=== PATIENT | male | born 1970 | race American Indian/Alaskan Native ===

== ENCOUNTER 2016-08-23 08:48 | Emergency (ER) | payer OTHER ==
[2016-08-23 09:20] VITALS: BP 209/153
[2016-08-23 09:58] LABS: Basophils % (Auto) 0.3 % (0.0-1.8); Eosinophils % (Auto) 0.4 % (0.0-4.3); Hematocrit 38.9 % (35.5-45.6); Hemoglobin 12.2 gm/dl (11.8-15.2); Mean Corpuscular HGB Conc 31 % (32-34); Mean Corpuscular Hemoglobin 28 pg (28-32); Mean Corpuscular Volume 88 fl (84-94); Platelet Count 307 K/mm3 (140-440); Red Cell Distribution Width 17.1 % (13.2-15.2); White Blood Count 6.2 K/mm3 (4.5-11.0)
[2016-08-23 10:15] LABS: Creatine Kinase MB 3.9 ng/mL (0.0-4.0)
[2016-08-23 10:16] LABS: Calcium 8.8 mg/dL (8.4-10.2); Chloride 100.4 mmol/L (98-107); Potassium 4.8 mmol/L (3.6-5.0)
[2016-08-23 11:15] LABS: Bilirubin,Urine NEG (Negative); Blood,Urine SM (Negative); Ketones,Urine NEG (Negative); Leukocyte Esterase,Urine NEG (Negative); Nitrite,Urine NEG (Negative); Protein,Urine <15 mg/dL mg/dL (Negative); Urobilinogen,Urine < 2.0 mg/dL (<2.0); WBC,Urine < 1.0 /HPF (0.0-6.0)
--- NOTE | 2016-08-24 00:21 | ED Elopement Review ---
ED Pt Elopement review - Results review Lab results: Laboratory Tests 08/23/16 08/23/16 08/23/16 09:46 09:46 11:03 WBC 6.2 RBC 4.40 Hgb 12.2 Hct 38.9 MCV 88 MCH 28 MCHC 31 L RDW 17.1 H Plt Count 307 Lymph % (Auto) 8.2 L Wise % (Auto) 6.9 Eos % (Auto) 0.4 Baso % (Auto) 0.3 Lymph # 0.5 L Wise # 0.4 Eos # 0.0 Baso # 0.0 Seg Neutrophils % 84.2 H Seg Neutrophils # 5.2 Sodium 137 Potassium 4.8 Chloride 100.4 Carbon Dioxide 24 Anion Gap 17 BUN 24 H Creatinine 1.6 H Estimated GFR 56 BUN/Creatinine Ratio 15.00 Glucose 107 H Calcium 8.8 Total Creatine Kinase 167 CK-MB (CK-2) 3.9 CK-MB (CK-2) Rel Index 2.3 Troponin T 0.054 H Triglycerides 79 Cholesterol 166 LDL Cholesterol Direct 106 HDL Cholesterol 45 Cholesterol/HDL Ratio 3.68 Urine Color Colorless Urine Turbidity Clear Urine pH 5.0 Ur Specific [place] 1.005 Urine Protein <15 mg/dl Urine Glucose (UA) Neg Urine Ketones Neg Urine Blood Sm Urine Nitrite Neg Urine Bilirubin Neg Urine Urobilinogen < 2.0 Ur Leukocyte Esterase Neg Urine WBC (Auto) < 1.0 Urine RBC (Auto) 1.0 - Call Back decision Pt Call Back Decision: Call pt to return to ED TRISTA (Hypertension with elevated troponin)
== END 2016-08-23 09:46 | disposition left against medical advice (07) ==
LOC: ED 08:48
DX: R06.02 Shortness of breath (principal); Z53.21 Procedure and treatment not carried out due to patient leaving prior to being seen by health care provider
CPT/HCPCS: 36415; 80048; 80061; 81001; 82550; 82553; 84484; 85025; 93005; 93010

== ENCOUNTER 2019-01-21 12:33 | Inpatient (IN) | payer BC, OTHER ==
[2019-01-21] MEDS ORDERED: NACL 0.9% 1000 ML 1,000 ML ONE (13:02)
[2019-01-21] MEDS ORDERED: ZOFRAN ONE (13:02)
[2019-01-21] MEDS ORDERED: NACL 0.9% 1000 ML 2,000 ML IV ONE (13:04)
[2019-01-21] MEDS ORDERED: PROTONIX IV ONE (13:04)
[2019-01-21] MEDS ORDERED: ROCEPHIN/NS 1 GM/50 ML 1 GM/50 ML BAG IV ONE (13:05)
[2019-01-21] MEDS ORDERED: ZOFRAN IV ONE (13:27)
[2019-01-21 13:43] LABS: Hematocrit 26.2 % (35.5-45.6); Hemoglobin 8.8 gm/dl (11.8-15.2); Mean Corpuscular HGB Conc 34 % (32-34); Mean Corpuscular Volume 107 fl (84-94); Platelet Count 119 K/mm3 (140-440); Red Blood Count 2.45 M/mm3 (3.65-5.03)
[2019-01-21] MEDS: PROTONIX 80 MG in NACL 0.9% 100 ML IV SCH (13:43)
[2019-01-21 13:53] LABS: Red Cell Distribution Width 21.5 % (13.2-15.2)
[2019-01-21 13:57] LABS: Alanine Aminotransferase 54 units/L (7-56); Albumin 2.8 g/dL (3.9-5); BUN/Creatinine Ratio 20; Blood Urea Nitrogen 18 mg/dL (9-20); Hemolysis Index 0; INR 1.64 (0.87-1.13)
[2019-01-21 13:58] LABS: Partial Thromboplastin Time 38.4 Sec. (24.2-36.6)
[2019-01-21] MEDS ORDERED: LIDOCAINE VISCOUS 2% ONE (14:29)
[2019-01-21 14:53] LABS: Basophils % (Manual) 0 % (0.0-1.8); Eosinophils % (Manual) 0 % (0.0-4.3); Total Cells Counted 100
[2019-01-21 14:54] LABS: Anisocytosis 1+; Hypochromasia 2+; Large Platelets Rare; Ovalocytes Few; Platelet Estimate Consistent w Auto; Poikilocytosis 1+; Stomatocytes Few; Tear Drop Cells Few
[2019-01-21] MEDS ORDERED: FLAGYL 500 MG/100 ML 500 MG/100 ML BAG IV ONE (15:15)
--- NOTE | 2019-01-21 15:27 | XRay Report ---
Acute abdomen series 3 views 1423 INDICATION: Abdominal pain, nausea, vomiting Lung negrete are clear. Heart size and pulmonary vascularity appear within normal limits. No pneumotho rax or pneumoperitoneum are seen. Bowel gas pattern is unremarkable without evidence of obstruction. Calcifications in the right pelvis probably are vascular. There is possible minimal right nephrolithi asis though this may be artifact. Signer Name: Adolfo Carpio MD Signed: 01/21/2019 3:22 PM Workstation Name: [id number]
[2019-01-21 15:36] LABS: Hematocrit 24.4 % (35.5-45.6); Hemoglobin 8.2 gm/dl (11.8-15.2)
[2019-01-21] MEDS ORDERED: NACL 0.9% 500 ML 500 ML IV ONE (15:44)
--- NOTE | 2019-01-21 15:46 | History and Physical Report ---
History of Present Illness Chief complaint: Blood keeps coming out History of present illness: 48 YO Male with ETOH Dependence present to ED for evaluation. Pt states that he has experienced multiple episodes af hematemesis over the past 2 days with worsening symptoms over the past 8 hours. Pt states that he has vomited countless times since waking this morning. Pt states that his last drink of ETOH was 2 days ago. EMS notified and upon arrival the patient was found to be in distress, and transported to [facility]. Pt seen and evaluated in ED and found to have evidence of Upper GI Bleed, as well as suspected Esophageal Varices. GI consulted in ED. Pt admitted to ICU and initiated on Octreotide, Protonix, as well as transfused with FFP and PRBC. Pt denies fever, chills, CP, Palpitations, Trauma, BRBPR, Productive cough, leg swelling, calf pain, seizures, vertigo, skin rash, ingestion of food/water from new/different sources. No prior admission for review. All listed medication reconciled at time of admission. Past History Past Medical History: hypertension Past Surgical History: No surgical history, Other (reviewed) Social history: , lives with family, alcohol abuse Family history: no significant family history (reviewed) Medications and Allergies Allergies Allergy/AdvReac Type Severity Reaction Status Date / Time No Known Allergies Allergy Unverified 05/30/13 18:21 Home Medications Medication Instructions Recorded Confirmed Last Taken Type Metoprolol [Lopressor TAB] 50 mg PO BID #60 tablet 06/01/13 Unknown Rx Sulfamethoxazole/Trimethoprim 1 each PO Q12HR #20 tablet 06/01/13 Unknown Rx [Bactrim DS TAB] hydrALAZINE [Apresoline TAB] 50 mg PO Q8HR #90 tablet 06/01/13 Unknown Rx HYDROcodone/APAP 7.5-325 [[place] 1 each PO Q6HR PRN #30 tablet 01/20/14 Unknown Rx 7.5/325 mg] Ibuprofen [Motrin] 600 mg PO Q8H PRN #60 tablet 01/20/14 Unknown Rx Sulfamethoxazole/Trimethoprim 1 each PO BID #14 tablet 07/19/14 Unknown Rx [Bactrim Ds] amLODIPine [Norvasc] 5 mg PO QDAY #30 tablet 07/19/14 Unknown Rx traMADol [Ultram 50 MG tab] 50 mg PO Q6HR PRN #10 tablet 07/19/14 Unknown Rx Active Meds: Active Medications Pantoprazole Sodium 80 mg/ (Sodium Chloride) 100 mls @ 10 mls/hr IV DIRECT SCOTT Last Admin: 01/21/19 13:43 Dose: 8 mg/hr, 10 mls/hr Documented by: Octreotide Acetate 500 mcg/ (Sodium Chloride) 101 mls @ 5.05 mls/hr IV TITR ONE; Protocol Stop: 01/22/19 11:59 Sodium Chloride (Nacl 0.9% 500 Ml) 500 mls @ 0 mls/hr IV ONCE ONE Stop: 01/21/19 15:45 Octreotide Acetate (Sandostatin) 50 mcg IV ONCE ONE Stop: 01/21/19 16:01 Review of Systems Constitutional: no weight loss, no weight gain, no fever, no chills Ears, nose, mouth and throat: no ear pain, no ear discharge, no tinnitis, no decreased hearing, no nose pain Cardiovascular: no chest pain, no orthopnea, no palpitations, no rapid/irregular heart beat, no edema, no syncope Respiratory: hemoptysis, no cough, no cough with sputum Gastrointestinal: vomiting, hematemesis, coffee ground emesis, no diarrhea, no BRBPR, no melena Genitourinary Male: no hematuria, no flank pain, no discharge, no urinary frequency Rectal: no pain, no incontinence, no bleeding Musculoskeletal: no neck stiffness, no arm numbness/tingling, no shooting leg pain Integumentary: no rash, no pruritis, no redness, no sores, no wounds, no jaundice Neurological: no head injury, no transient paralysis, no paralysis, no parathesias, no numbness, no tingling, no seizures, no syncope Psychiatric: no anxiety, no insomnia, no hypersomnia, no change in libido, no suicidal ideation Endocrine: no cold intolerance, no heat intolerance, no polydipsia, no nocturia, no flushing Hematologic/Lymphatic: no easy bruising, no easy bleeding Allergic/Immunologic: no urticaria Exam - Constitutional Vitals: Temp Pulse Resp BP Pulse Ox 98.5 F 124 H 31 H 140/59 100 01/21/19 12:48 01/21/19 15:31 01/21/19 15:31 01/21/19 15:31 01/21/19 15:31 General appearance: Present: mild distress - EENT Eyes: Present: PERRL ENT: hearing intact, clear oral mucosa - Neck Neck: Present: supple, normal ROM - Respiratory Respiratory effort: normal Respiratory: bilateral: CTA - Cardiovascular Heart Sounds: Present: S1 & S2. Absent: rub, click - Extremities Extremities: pulses symmetrical, No edema Peripheral Pulses: within normal limits - Abdominal General gastrointestinal: Present: soft, non-tender, non-distended, normal bowel sounds Male genitourinary: Present: normal - Integumentary Integumentary: Present: clear, warm, dry - Musculoskeletal Musculoskeletal: gait normal, strength equal bilaterally - Psychiatric Psychiatric: appropriate mood/affect, intact judgment & insight - Neurologic Neurologic: CNII-XII intact, moves all extremities Results - Labs CBC & Chem 7: 01/21/19 15:24 01/21/19 13:03 Labs: Abnormal lab results 01/21/19 01/21/19 01/21/19 Range/Units 13:03 13:03 13:03 RBC 2.45 L (3.65-5.03) M/mm3 Hgb 8.8 L (11.8-15.2) gm/dl Hct 26.2 L (35.5-45.6) % MCV 107 H (84-94) fl MCH 36 H (28-32) pg RDW 21.5 H (13.2-15.2) % Plt Count 119 L (140-440) K/mm3 Seg Neuts % (Manual) 76.0 H (40.0-70.0) % PT 19.0 H (12.2-14.9) Sec. INR 1.64 H (0.87-1.13) APTT 38.4 H (24.2-36.6) Sec. Carbon Dioxide 17 L (22-30) mmol/L Glucose 139 H (75-100) mg/dL Lactic Acid (0.7-2.0) mmol/L Calcium 8.0 L (8.4-10.2) mg/dL Total Bilirubin 2.70 H (0.1-1.2) mg/dL AST 156 H (5-40) units/L Albumin 2.8 L (3.9-5) g/dL 01/21/19 01/21/19 Range/Units 14:09 15:24 RBC (3.65-5.03) M/mm3 Hgb 8.2 L (11.8-15.2) gm/dl Hct 24.4 L (35.5-45.6) % MCV (84-94) fl MCH (28-32) pg RDW (13.2-15.2) % Plt Count (140-440) K/mm3 Seg Neuts % (Manual) (40.0-70.0) % PT (12.2-14.9) Sec. INR (0.87-1.13) APTT (24.2-36.6) Sec. Carbon Dioxide (22-30) mmol/L Glucose (75-100) mg/dL Lactic Acid 7.30 H* (0.7-2.0) mmol/L Calcium (8.4-10.2) mg/dL Total Bilirubin (0.1-1.2) mg/dL AST (5-40) units/L Albumin (3.9-5) g/dL Assessment and Plan - Patient Problems (1) GI bleed Current Visit: Yes Status: Acute Qualifiers: GI bleed type/associated pathology: unspecified gastrointestinal hemorrhage type Qualified Code(s): K92.2 - Gastrointestinal hemorrhage, unspecified Plan to address problem: Admit to ICU, IV protonix, IV octreotide, PRBC transfusion, FFP Transfusion, bowel rest, GI consulted in ED, Pending endoscopy for suspected esophageal varices. The high probability of a clinically significant, sudden or life threatening deterioration of the [Gi, Hematologic,respiratory] system(s) required my full and direct attention, intervention and personal management. The aggregate critical care time was [65] minutes. This time is in addition to time spent performing reported procedures but includes the following: [x] Data Review and interpretation [x] Patient assessment and monitoring of vital signs [x] Documentation [x] Medication orders and management (2) EtOH dependence Current Visit: Yes Status: Acute Qualifiers: Substance use status: with intoxication Plan to address problem: CIWA protocol, banana bag now and in AM. Pt is NPO for now due to upper GI Bleeding (3) Anemia Current Visit: Yes Status: Acute Plan to address problem: PRBC transfusion, iron replacement therapy when able to tolerate oral diet. (4) Acidosis Current Visit: Yes Status: Acute (5) Hepatic failure due to alcoholism Current Visit: Yes Status: Acute Plan to address problem: ETOH cessation, LFT's, supportive care. avoid hepatotoxic agents. (6) DVT prophylaxis Current Visit: Yes Status: Acute Plan to address problem: SCD to BLE while in bed, Hold anticoagulation due to GI bleeding
--- NOTE | 2019-01-21 15:46 | XRay Report ---
Abdomen single view INDICATION: Abdominal pain IMPRESSION: Nonobstructive bowel gas pattern. The esophagogastric tube terminates within the stomach. Signer Name: Jose Hutson MD Signed: 01/21/2019 3:42 PM Workstation Name: [id number]
--- NOTE | 2019-01-21 15:50 | Emergency Department Report ---
ED GI Bleed HPI - General Chief complaint: GI Bleed Stated complaint: N/V Time Seen by Provider: 01/21/19 13:02 Source: EMS Mode of arrival: Stretcher Limitations: No Limitations - History of Present Illness Initial comments: Reports history of alcoholism. MD complaint: gross hematemesis -: hour(s) Radiation: none Severity scale (0 -10): 0 Quality: painless Consistency: intermittent Improves with: none Worsens with: none Context: alcohol abuse Associated Symptoms: nausea, vomiting. denies: abdominal pain, epistaxis, fever/chills, headaches, loss of appetite, malaise, easy bruising, rash, shortness of breath, syncope, weakness - Related Data Previous Rx's Medication Instructions Recorded Last Taken Type Metoprolol [Lopressor TAB] 50 mg PO BID #60 tablet 06/01/13 Unknown Rx Sulfamethoxazole/Trimethoprim 1 each PO Q12HR #20 tablet 06/01/13 Unknown Rx [Bactrim DS TAB] hydrALAZINE [Apresoline TAB] 50 mg PO Q8HR #90 tablet 06/01/13 Unknown Rx HYDROcodone/APAP 7.5-325 [[place] 1 each PO Q6HR PRN #30 tablet 01/20/14 Unknown Rx 7.5/325 mg] Ibuprofen [Motrin] 600 mg PO Q8H PRN #60 tablet 01/20/14 Unknown Rx Sulfamethoxazole/Trimethoprim 1 each PO BID #14 tablet 07/19/14 Unknown Rx [Bactrim Ds] amLODIPine [Norvasc] 5 mg PO QDAY #30 tablet 07/19/14 Unknown Rx traMADol [Ultram 50 MG tab] 50 mg PO Q6HR PRN #10 tablet 07/19/14 Unknown Rx Allergies Allergy/AdvReac Type Severity Reaction Status Date / Time No Known Allergies Allergy Unverified 05/30/13 18:21 ED Review of Systems ROS: Stated complaint: N/V Other details as noted in HPI Other: GENERAL: No weight change, fatigue, weakness, fever, chills, or night sweats SKIN: No changes in skin or hair, no itching, no rashes, no jaundice HEAD: No trauma, headache, or visual changes EYES: No blurriness, tearing, itching, acute visual loss, conjunctival discoloration, or scleral icterus EARS: No hearing loss, tinnitus, vertigo, or earache NOSE: No rhinorrhea, stuffiness, sneezing, itching, or epistaxis MOUTH: No bleeding gums, hoarseness, sore throat, or swelling CARDIAC: No new murmur, chest pain, palpitations, dyspnea on exertion, orthopnea , PND, or edema RESPIRATORY: No shortness of breath, wheeze, cough, sputum production, hemoptysis, pneumonia, asthma, bronchitis, or emphysema GI: Hematemesis, n/v. MUSCULOSKELETAL: No muscle weakness, joint stiffness, decrease in range of motion, redness, swelling NEUROLOGIC: No loss of sensation, numbness, tingling, tremors, weakness, paralysis, seizures HEMATOLOGIC: No anemia, easy bruising, bleeding, petechiae, or purpura ENDOCRINE: No hot or cold intolerance, sweating, polyuria, polydipsia or, polyphagia no thyroid problems PSYCHIATRIC: No change in mood, no anxiety, no depression ED Past Medical Hx - Past Medical History Previous Medical History?: Yes Hx Hypertension: Yes Hx Congestive Heart Failure: No Hx Diabetes: No - Social History Smoking Status: Never Smoker - Medications Home Medications: Home Medications Medication Instructions Recorded Confirmed Last Taken Type Metoprolol [Lopressor TAB] 50 mg PO BID #60 tablet 06/01/13 Unknown Rx Sulfamethoxazole/Trimethoprim 1 each PO Q12HR #20 tablet 06/01/13 Unknown Rx [Bactrim DS TAB] hydrALAZINE [Apresoline TAB] 50 mg PO Q8HR #90 tablet 06/01/13 Unknown Rx HYDROcodone/APAP 7.5-325 [[place] 1 each PO Q6HR PRN #30 tablet 01/20/14 Unknown Rx 7.5/325 mg] Ibuprofen [Motrin] 600 mg PO Q8H PRN #60 tablet 01/20/14 Unknown Rx Sulfamethoxazole/Trimethoprim 1 each PO BID #14 tablet 07/19/14 Unknown Rx [Bactrim Ds] amLODIPine [Norvasc] 5 mg PO QDAY #30 tablet 07/19/14 Unknown Rx traMADol [Ultram 50 MG tab] 50 mg PO Q6HR PRN #10 tablet 07/19/14 Unknown Rx ED Physical Exam - General Limitations: No Limitations - Other Other exam information: GENERAL: Patient in moderate acute distress HEAD: Normocephalic, atraumatic MOUTH: Dark red blood around lips. No erythema, bleeding, exudate HEART: Tachycardia, no murmur, S1-S2 are auscultated, pulses are symmetric LUNGS: No wheezing, rales, rhonchi, bilateral breath sounds ABDOMEN: Active hematemesis in the ER. Approximately 500 cc dark red blood. Normal bowel sounds, no tenderness, no rebound, no guarding, no masses, no CVA tenderness MUSCULOSKELETAL: Normal joint range of motion, no redness, no swelling, no tenderness NEUROLOGIC: GCS 15, Alert and Oriented x3, Cranial nerves intact, normal sensation, normal strength, normal gait, no cerebellar deficit SKIN: Skin is warm and dry, no wounds, no rashes ED Course Vital Signs 01/21/19 01/21/19 01/21/19 12:38 12:46 12:48 Temperature 98.5 F Pulse Rate 121 H 87 Respiratory 17 17 Rate Blood Pressure 105/54 105/54 108/65 Blood Pressure [Right] O2 Sat by Pulse 99 100 Oximetry 01/21/19 01/21/19 01/21/19 13:00 13:15 13:20 Temperature Pulse Rate 128 H 121 H 114 H Respiratory 17 25 H 30 H Rate Blood Pressure 89/51 Blood Pressure 90/62 [Right] O2 Sat by Pulse 97 99 98 Oximetry 01/21/19 01/21/19 01/21/19 13:24 13:30 13:45 Temperature Pulse Rate 117 H Respiratory 17 Rate Blood Pressure 112/63 115/62 Blood Pressure 112/75 [Right] O2 Sat by Pulse 100 98 98 Oximetry 01/21/19 01/21/19 01/21/19 14:01 14:15 14:30 Temperature Pulse Rate 125 H 126 H Respiratory 25 H 18 Rate Blood Pressure 140/87 131/75 Blood Pressure 135/75 [Right] O2 Sat by Pulse 97 99 100 Oximetry 01/21/19 01/21/19 01/21/19 14:31 14:45 15:01 Temperature Pulse Rate 124 H 129 H Respiratory 16 28 H Rate Blood Pressure 131/75 144/85 124/67 Blood Pressure [Right] O2 Sat by Pulse 98 99 98 Oximetry 01/21/19 01/21/19 01/21/19 15:15 15:23 15:31 Temperature Pulse Rate 124 H 125 H 124 H Respiratory 15 17 31 H Rate Blood Pressure 138/61 140/59 Blood Pressure 135/68 [Right] O2 Sat by Pulse 100 100 100 Oximetry ED Medical Decision Making - Lab Data Result diagrams: 01/21/19 15:24 01/21/19 13:03 Laboratory Results - last 24 hr 01/21/19 01/21/19 01/21/19 13:03 13:03 13:03 WBC 6.7 RBC 2.45 L Hgb 8.8 L Hct 26.2 L MCV 107 H MCH 36 H MCHC 34 RDW 21.5 H Plt Count 119 L Add Manual Diff Complete Total Counted 100 Seg Neuts % (Manual) 76.0 H Band Neutrophils % 0 Lymphocytes % (Manual) 18.0 Reactive Lymphs % (Man) 3.0 Monocytes % (Manual) 3.0 Eosinophils % (Manual) 0 Basophils % (Manual) 0 Metamyelocytes % 0 Myelocytes % 0 Promyelocytes % 0 Blast Cells % 0 Nucleated RBC % Not Reportable Seg Neutrophils # Man 5.1 Band Neutrophils # 0.0 Lymphocytes # (Manual) 1.2 Abs React Lymphs (Man) 0.2 Monocytes # (Manual) 0.2 Eosinophils # (Manual) 0.0 Basophils # (Manual) 0.0 Metamyelocytes # 0.0 Myelocytes # 0.0 Promyelocytes # 0.0 Blast Cells # 0.0 WBC Morphology Not Reportable Hypersegmented Neuts Not Reportable Hyposegmented Neuts Not Reportable Hypogranular Neuts Not Reportable Smudge Cells Not Reportable Toxic Granulation Not Reportable Toxic Vacuolation Not Reportable Dohle Bodies Not Reportable Pelger-Huet Anomaly Not Reportable Tara Rods Not Reportable Platelet Estimate Consistent w auto Clumped Platelets Not Reportable Plt Clumps, EDTA Not Reportable Large Platelets Rare Giant Platelets Not Reportable Platelet Satelliting Not Reportable Plt Morphology Comment Not Reportable RBC Morphology Not Reportable Dimorphic RBCs Not Reportable Polychromasia Not Reportable Hypochromasia 2+ Poikilocytosis 1+ Anisocytosis 1+ Microcytosis 1+ Macrocytosis Not Reportable Spherocytes Not Reportable Pappenheimer Bodies Not Reportable Sickle Cells Not Reportable Target Cells Not Reportable Tear Drop Cells Few Ovalocytes Few Stomatocytes Few Helmet Cells Not Reportable [place] Bodies Not Reportable [place] Rings Not Reportable [place] Cells Not Reportable Bite Cells Not Reportable Crenated Cell Not Reportable Elliptocytes Not Reportable Acanthocytes (Spur) Not Reportable Rouleaux Not Reportable Hemoglobin C Crystals Not Reportable Schistocytes Not Reportable Malaria parasites Not Reportable [place] Bodies Not Reportable Hem Pathologist Commnt No PT 19.0 H INR 1.64 H APTT 38.4 H Sodium 141 Potassium 4.5 Chloride 102.7 Carbon Dioxide 17 L Anion Gap 26 BUN 18 Creatinine 0.9 Estimated GFR > 60 BUN/Creatinine Ratio 20 Glucose 139 H Lactic Acid Calcium 8.0 L Total Bilirubin 2.70 H AST 156 H ALT 54 Alkaline Phosphatase 110 Troponin T < 0.010 Total Protein 6.7 Albumin 2.8 L Albumin/Globulin Ratio 0.7 Blood Type Antibody Screen 01/21/19 01/21/19 01/21/19 13:03 14:09 15:24 WBC RBC Hgb 8.2 L Hct 24.4 L MCV MCH MCHC RDW Plt Count Add Manual Diff Total Counted Seg Neuts % (Manual) Band Neutrophils % Lymphocytes % (Manual) Reactive Lymphs % (Man) Monocytes % (Manual) Eosinophils % (Manual) Basophils % (Manual) Metamyelocytes % Myelocytes % Promyelocytes % Blast Cells % Nucleated RBC % Seg Neutrophils # Man Band Neutrophils # Lymphocytes # (Manual) Abs React Lymphs (Man) Monocytes # (Manual) Eosinophils # (Manual) Basophils # (Manual) Metamyelocytes # Myelocytes # Promyelocytes # Blast Cells # WBC Morphology Hypersegmented Neuts Hyposegmented Neuts Hypogranular Neuts Smudge Cells Toxic Granulation Toxic Vacuolation Dohle Bodies Pelger-Huet Anomaly Tara Rods Platelet Estimate Clumped Platelets Plt Clumps, EDTA Large Platelets Giant Platelets Platelet Satelliting Plt Morphology Comment RBC Morphology Dimorphic RBCs Polychromasia Hypochromasia Poikilocytosis Anisocytosis Microcytosis Macrocytosis Spherocytes Pappenheimer Bodies Sickle Cells Target Cells Tear Drop Cells Ovalocytes Stomatocytes Helmet Cells Logan-[place] Bodies [place] Rings [place] Cells Bite Cells Crenated Cell Elliptocytes Acanthocytes (Spur) Rouleaux Hemoglobin C Crystals Schistocytes Malaria parasites Douglas Bodies Hem Pathologist Commnt PT INR APTT Sodium Potassium Chloride Carbon Dioxide Anion Gap BUN Creatinine Estimated GFR BUN/Creatinine Ratio Glucose Lactic Acid 7.30 H* Calcium Total Bilirubin AST ALT Alkaline Phosphatase Troponin T Total Protein Albumin Albumin/Globulin Ratio Blood Type A POSITIVE Antibody Screen Negative - EKG Data When compared to previous EKG there are: no significant change - Radiology Data Radiology results: report reviewed - Medical Decision Making At 0340 Dr. Magdaleno GI updated. Recommends octreotide bolus and drip for possible esophageal varices. Request 1 unit FFP to bring INR below 1.5. Reports he will evaluate for EGD. Dr. Norton hospitalist updated and reports he will order FFP and accepts admission. Critical Care Time: Yes Critical care time in (mins) excluding proc time.: 35 Critical care attestation.: If time is entered above; I have spent that time in minutes in the direct care of this critically ill patient, excluding procedure time. ED Disposition Clinical Impression: Hyperbilirubinemia, Coagulopathy Sepsis Qualifiers: Sepsis type: sepsis due to unspecified organism Qualified Code(s): A41.9 - Sepsis, unspecified organism GI bleed Qualifiers: GI bleed type/associated pathology: unspecified gastrointestinal hemorrhage type Qualified Code(s): K92.2 - Gastrointestinal hemorrhage, unspecified Anemia Qualifiers: Anemia type: unspecified type Qualified Code(s): D64.9 - Anemia, unspecified Disposition: -09 OP ADMIT IP TO THIS HOSP Is pt being admited?: Yes Condition: Stable Referrals: ALICIA MCKINLEY MD [Primary Care Provider] - 3-5 Days
[2019-01-21] MEDS ORDERED: SandoSTATIN 500 MCG in NACL 0.9% 100 ML IV ONE (16:00)
[2019-01-21] MEDS ORDERED: PROVENTIL IH PRN (16:04)
[2019-01-21] MEDS ORDERED: SODIUM CHLORIDE FLUSH SYRINGE 10 ML IV PRN (16:04)
[2019-01-21] MEDS ORDERED: APRESOLINE IV PRN (16:07)
[2019-01-21] MEDS ORDERED: ATIVAN IV PRN (16:09)
--- NOTE | 2019-01-21 16:18 | Anesthesia Day of Surgery ---
Anesthesia Day of Surgery - Day of Surgery Patient Examined: Yes Patient H&P Reviewed: Yes Patient is NPO: Yes
--- NOTE | 2019-01-21 16:23 | Anesthesia Consultation ---
Anesthesia Consult and Med Hx Date of service: 01/21/19 - Airway Anesthetic Teeth Evaluation: Chipped ROM Head & Neck: Adequate Mental/Hyoid Distance: Adequate Mallampati Class: Class II Intubation Access Assessment: Probably Good - Pre-Operative Health Status ASA Pre-Surgery Classification: ASA3, Emergency Proposed Anesthetic Plan: MAC - Pulmonary Hx Smoking: No (Quit 1 year ago) Hx Asthma: No COPD: No Hx Sleep Apnea: No (Denies) - Cardiovascular System Hx Hypertension: Yes - Gastrointestinal Hx Gastroesophageal Reflux Disease: No (In the past. +Esophageal varices) - Endocrine Hx End Stage Renal Disease: No Hx Liver Disease: Yes (Heavy ETOh abuse. Increase AST, Low albumin) - Hematic Hx Anemia: Yes (INR high) Hx Sickle Cell Disease: No - Other Systems Hx Alcohol Use: Yes (HEAVY)
[2019-01-21] MEDS ORDERED: VITAMIN B-1 100 MG, FOLVITE 1 MG, INFUVITE 10 ML in NACL 0.9% 1000 ML 1,000 ML IV ONE (17:00)
[2019-01-21] MEDS ORDERED: NEO-SYNEPHRINE ONE (17:00)
[2019-01-21] MEDS ORDERED: ATIVAN ONE (17:09)
[2019-01-21] MEDS ORDERED: DIPRIVAN 10 MG/ML IV ONE ×2 (17:10→17:39)
[2019-01-21] MEDS ORDERED: XYLOCAINE CARDIAC IV ONE (17:11)
[2019-01-21] MEDS ORDERED: SUBLIMAZE ONE (17:12)
[2019-01-21] MEDS ORDERED: VERSED ONE (17:12)
[2019-01-21] MEDS ORDERED: KETALAR ONE (17:42)
--- NOTE | 2019-01-21 17:47 | Post Operative Note ---
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
[2019-01-21] MEDS ORDERED: REGLAN IV ONE (18:06)
[2019-01-21] MEDS ORDERED: REGLAN ONE (18:24)
--- NOTE | 2019-01-21 22:42 | Operative Report ---
PROCEDURE PERFORMED: EGD with bleeding therapy. INDICATIONS: 1. Upper GI bleed. 2. Anemia. MEDICATIONS: Propofol per [employer]. COMPLICATIONS: None. DESCRIPTION OF PROCEDURE: The patient was brought to the OR room. The patient had the procedure discussed with him at length. All risks, complications and benefits discussed, after which the patient signed for the procedure to be performed. The patient was placed in left lateral decubitus position. Mouth block was placed in the patient's oral cavity. After adequate sedation medication as above, endoscope was placed in mouth and brought to level of the second portion of duodenum. Retroflexion view was performed. The patient's vital signs remained stable throughout the procedure. FINDINGS: There were noted to be 3 columns of grade 3-4 varices with red shmuel and pigmented areas noted in mid to distal esophagus. No active bleeding was noted. Medium hiatal hernia at GE junction 30 cm from the gums. Large amount of old blood noted in the stomach. The stomach and duodenum otherwise appeared normal. Retroflexion showed no other pathology. After this inspection using standard technique, the endoscope was removed and 7 shooter bands were placed on the tip of the endoscope. The endoscope was then reinserted and using standard technique, 4 variceal bands were placed, though a total of 7 were deployed. Post-procedure, the patient was satisfactory. The patient tolerated the procedure well. No complications during the procedure. IMPRESSION: 1. Large esophageal varices, status post banding as noted above. 2. Hiatal hernia. 3. Large amount of old blood in the stomach. 4. Otherwise normal esophagogastroduodenoscopy. RECOMMENDATIONS: 1. Continue PPI and octreotide drip. 2. Follow H and H and transfuse, but would not transfuse until hemoglobin is less than 7 or significantly hypotensive. 3. FFP as needed. 4. N.p.o. for now. 5. ICU admission. 6. We will follow. JOB# [id number] TRENTON/JHONNY ANDRADE
[2019-01-22] MEDS: PROTONIX 80 MG in NACL 0.9% 100 ML IV SCH (00:56)
[2019-01-22] MEDS ORDERED: VITAMIN B-1 100 MG, FOLVITE 1 MG, INFUVITE 10 ML in NACL 0.9% 1000 ML 1,000 ML IV ONE (07:00)
[2019-01-22] MEDS: SandoSTATIN 500 MCG in NACL 0.9% 100 ML IV SCH ×2 (09:57→09:59)
[2019-01-22] MEDS: SODIUM CHLORIDE FLUSH SYRINGE 10 ML IV SCH ×2 (09:59→22:00)
--- NOTE | 2019-01-22 10:46 | Post Anesthesia Evaluation ---
- Post Anesthesia Evaluation Patient Participated: Yes Airway Patent: Yes Stable Respiratory Function: Yes Nausea/Vomiting: No Temp > 96.8F: Yes Pain Manageable: Yes Adequeate Hydration: Yes Anesthesia Complications: No Block Receding Appropriately: Not Applicable Patient on Ventilator: No
--- NOTE | 2019-01-22 12:01 | Consultation ---
History of Present Illness Consult date: 01/22/19 Requesting physician: JESSEE MCMAHAN Reason for consult: other (Acute G.I. Bleed (Variceal)) History of present illness: PULMONARY/CCM CONSULT NOTE (Full dictation # ) Please see dictated notes for full details Past History Past Medical History: hypertension Past Surgical History: No surgical history, Other (reviewed) Social history: , lives with family, alcohol abuse Family history: no significant family history (reviewed) Medications and Allergies Allergies Allergy/AdvReac Type Severity Reaction Status Date / Time No Known Allergies Allergy Unverified 05/30/13 18:21 Home Medications Medication Instructions Recorded Confirmed Last Taken Type No Known Home Medications [No 01/21/19 01/21/19 Unknown History Reported Home Medications] Active Meds: Active Medications Albuterol (Proventil) 2.5 mg IH Q3H PRN PRN Reason: Shortness Of Breath Hydralazine HCl (Apresoline) 10 mg IV Q6H PRN PRN Reason: Hypertension Octreotide Acetate 500 mcg/ (Sodium Chloride) 101 mls @ 5.05 mls/hr IV TITR SCOTT; Protocol Last Admin: 01/22/19 09:59 Dose: 25 mcg/hr, 5.05 mls/hr Documented by: Lorazepam (Ativan) 2 mg IV Q1H PRN PRN Reason: CIWA-Ar 02-22 Last Admin: 01/21/19 17:10 Dose: 2 mg Documented by: Pantoprazole Sodium (Protonix) 40 mg PO BID SCOTT Sodium Chloride (Sodium Chloride Flush Syringe 10 Ml) 10 ml IV BID SCOTT Last Admin: 01/22/19 09:59 Dose: 10 ml Documented by: Sodium Chloride (Sodium Chloride Flush Syringe 10 Ml) 10 ml IV PRN PRN PRN Reason: LINE FLUSH Physical Examination Vital signs: Vital Signs BP 105/54 01/21/19 12:38 Results - Laboratory Findings CBC and BMP: 01/21/19 15:24 01/21/19 13:03 PT/INR, D-dimer PT 19.0 Sec. (12.2-14.9) H 01/21/19 13:03 INR 1.64 (0.87-1.13) H 01/21/19 13:03 Abnormal lab findings: Abnormal Labs 07/14/19 07/14/19 07/14/19 13:03 13:03 13:03 RBC 2.45 L Hgb 8.8 L Hct 26.2 L MCV 107 H MCH 36 H RDW 21.5 H Plt Count 119 L Seg Neuts % (Manual) 76.0 H PT 19.0 H INR 1.64 H APTT 38.4 H Carbon Dioxide 17 L Glucose 139 H Lactic Acid Calcium 8.0 L Total Bilirubin 2.70 H AST 156 H Albumin 2.8 L 01/21/19 01/21/19 01/21/19 14:09 15:24 15:24 RBC Hgb 8.2 L Hct 24.4 L MCV MCH RDW Plt Count Seg Neuts % (Manual) PT INR APTT Carbon Dioxide Glucose Lactic Acid 7.30 H* 7.40 H* Calcium Total Bilirubin AST Albumin 01/21/19 01/21/19 20:44 23:36 RBC Hgb Hct MCV MCH RDW Plt Count Seg Neuts % (Manual) PT INR APTT Carbon Dioxide Glucose Lactic Acid 3.10 H* 2.30 H* Calcium Total Bilirubin AST Albumin
--- NOTE | 2019-01-22 12:15 | Progress Note ---
Assessment and Plan Assessment and plan: GI bleed. 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 We will discontinue octreotide and Protonix drips. Patient will be transferred to the floor. GI following. EtOH dependence. Continue CIWA protocol. Acute blood loss anemia. Continue PRBCs as needed. Follow-up CBC. Liver failure. Supportive care. Coagulopathy. Vitamin K as needed. Continue to monitor INR. History Interval history: 48 YO Male with ETOH Dependence present to ED for evaluation. Pt states that he has experienced multiple episodes af hematemesis prior to admission. EMS notified and upon arrival the patient was found to be in distress, and transported to [facility]. Pt seen and evaluated in ED and found to have evidence of Upper GI Bleed, as well as suspected Esophageal Varices. GI consulted in ED. Pt admitted to ICU and initiated on Octreotide, Protonix, as well as transfused with FFP and PRBC. 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 Hospitalist Physical - Constitutional Vitals: Temp Pulse Resp BP Pulse Ox 98.9 F 85 17 120/68 100 01/21/19 18:55 01/22/19 12:00 01/22/19 12:00 01/22/19 12:00 01/22/19 12:00 General appearance: Present: no acute distress - EENT Eyes: Present: PERRL, EOM intact ENT: hearing intact, clear oral mucosa, dentition normal - Neck Neck: Present: supple, normal ROM - Respiratory Respiratory effort: normal Respiratory: bilateral: CTA - Cardiovascular Rhythm: regular Heart Sounds: Present: S1 & S2. Absent: gallop, rub - Extremities Extremities: no ischemia, No edema, Full ROM - Abdominal General gastrointestinal: soft, non-tender, non-distended, normal bowel sounds - Integumentary Integumentary: Present: clear, warm, dry - Neurologic Neurologic: CNII-XII intact, moves all extremities Results - Labs CBC & Chem 7: 01/21/19 15:24 01/21/19 13:03 Labs: Laboratory Last Values WBC 6.7 K/mm3 (4.5-11.0) 01/21/19 13:03 RBC 2.45 M/mm3 (3.65-5.03) L 01/21/19 13:03 Hgb 8.2 gm/dl (11.8-15.2) L 01/21/19 15:24 Hct 24.4 % (35.5-45.6) L 01/21/19 15:24 MCV 107 fl (84-94) H 01/21/19 13:03 MCH 36 pg (28-32) H 01/21/19 13:03 MCHC 34 % (32-34) 01/21/19 13:03 RDW 21.5 % (13.2-15.2) H 01/21/19 13:03 Plt Count 119 K/mm3 (140-440) L 01/21/19 13:03 Add Manual Diff Complete 01/21/19 13:03 Total Counted 100 01/21/19 13:03 Seg Neuts % (Manual) 76.0 % (40.0-70.0) H 01/21/19 13:03 0 % 01/21/19 13:03 18.0 % (13.4-35.0) 01/21/19 13:03 Reactive Lymphs % (Man) 3.0 % 01/21/19 13:03 3.0 % (0.0-7.3) 01/21/19 13:03 0 % (0.0-4.3) 01/21/19 13:03 0 % (0.0-1.8) 01/21/19 13:03 0 % 01/21/19 13:03 0 % 01/21/19 13:03 0 % 01/21/19 13:03 0 % 01/21/19 13:03 Nucleated RBC % Not Reportable 01/21/19 13:03 Seg Neutrophils # Man 5.1 K/mm3 (1.8-7.7) 01/21/19 13:03 Band Neutrophils # 0.0 K/mm3 01/21/19 13:03 1.2 K/mm3 (1.2-5.4) 01/21/19 13:03 Abs React Lymphs (Man) 0.2 K/mm3 01/21/19 13:03 0.2 K/mm3 (0.0-0.8) 01/21/19 13:03 0.0 K/mm3 (0.0-0.4) 01/21/19 13:03 0.0 K/mm3 (0.0-0.1) 01/21/19 13:03 0.0 K/mm3 01/21/19 13:03 0.0 K/mm3 01/21/19 13:03 0.0 K/mm3 01/21/19 13:03 Blast Cells # 0.0 K/mm3 01/21/19 13:03 WBC Morphology Not Reportable 01/21/19 13:03 Hypersegmented Neuts Not Reportable 01/21/19 13:03 Hyposegmented Neuts Not Reportable 01/21/19 13:03 Hypogranular Neuts Not Reportable 01/21/19 13:03 Not Reportable 01/21/19 13:03 Not Reportable 01/21/19 13:03 Not Reportable 01/21/19 13:03 Not Reportable 01/21/19 13:03 Not Reportable 01/21/19 13:03 Not Reportable 01/21/19 13:03 Consistent w auto 01/21/19 13:03 Not Reportable 01/21/19 13:03 Plt Clumps, EDTA Not Reportable 01/21/19 13:03 Rare 01/21/19 13:03 Not Reportable 01/21/19 13:03 Not Reportable 01/21/19 13:03 Plt Morphology Comment Not Reportable 01/21/19 13:03 RBC Morphology Not Reportable 01/21/19 13:03 Dimorphic RBCs Not Reportable 01/21/19 13:03 Not Reportable 01/21/19 13:03 2+ 01/21/19 13:03 1+ 01/21/19 13:03 1+ 01/21/19 13:03 1+ 01/21/19 13:03 Not Reportable 01/21/19 13:03 Not Reportable 01/21/19 13:03 Not Reportable 01/21/19 13:03 Not Reportable 01/21/19 13:03 Not Reportable 01/21/19 13:03 Few 01/21/19 13:03 Few 01/21/19 13:03 Few 01/21/19 13:03 Not Reportable 01/21/19 13:03 Not Reportable 01/21/19 13:03 Not Reportable 01/21/19 13:03 Not Reportable 01/21/19 13:03 Not Reportable 01/21/19 13:03 Not Reportable 01/21/19 13:03 Not Reportable 01/21/19 13:03 Acanthocytes (Spur) Not Reportable 01/21/19 13:03 Rouleaux Not Reportable 01/21/19 13:03 Not Reportable 01/21/19 13:03 Not Reportable 01/21/19 13:03 Not Reportable 01/21/19 13:03 Not Reportable 01/21/19 13:03 Hem Pathologist Commnt No 01/21/19 13:03 PT 19.0 Sec. (12.2-14.9) H 01/21/19 13:03 INR 1.64 (0.87-1.13) H 01/21/19 13:03 APTT 38.4 Sec. (24.2-36.6) H 01/21/19 13:03 Sodium 141 mmol/L (137-145) 01/21/19 13:03 Potassium 4.5 mmol/L (3.6-5.0) 01/21/19 13:03 Chloride 102.7 mmol/L (98-107) 01/21/19 13:03 Carbon Dioxide 17 mmol/L (22-30) L 01/21/19 13:03 26 mmol/L 01/21/19 13:03 BUN 18 mg/dL (9-20) 01/21/19 13:03 0.9 mg/dL (0.8-1.5) 01/21/19 13:03 Estimated GFR > 60 ml/min 01/21/19 13:03 20 % 01/21/19 13:03 Glucose 139 mg/dL (75-100) H 01/21/19 13:03 Lactic Acid 1.10 mmol/L (0.7-2.0) 01/22/19 06:06 Calcium 8.0 mg/dL (8.4-10.2) L 01/21/19 13:03 2.70 mg/dL (0.1-1.2) H 01/21/19 13:03 AST 156 units/L (5-40) H 01/21/19 13:03 ALT 54 units/L (7-56) 01/21/19 13:03 110 units/L (35-129) 01/21/19 13:03 < 0.010 ng/mL (0.00-0.029) 01/21/19 13:03 6.7 g/dL (6.3-8.2) 01/21/19 13:03 2.8 g/dL (3.9-5) L 01/21/19 13:03 0.7 % 01/21/19 13:03 Plasma/Serum Alcohol 0.06 % (0-0.07) 01/21/19 14:09 Blood Type A POSITIVE 01/21/19 13:03 Antibody Screen Negative 01/21/19 13:03 Active Medications - Current Medications Current Medications: Generic Name Dose Route Start Last Admin Trade Name Freq PRN Reason Stop Dose Admin Albuterol 2.5 mg 01/21/19 16:04 Proventil IH Q3H PRN Shortness Of Breath Hydralazine HCl 10 mg 01/21/19 16:07 Apresoline IV Q6H PRN Hypertension Octreotide Acetate 500 mcg/ 101 mls @ 5.05 mls/hr 01/22/19 09:00 01/22/19 09:59 Sodium Chloride IV 25 mcg/hr TITR SCOTT 5.05 mls/hr Administration Protocol 25 MCG/HR Lorazepam 2 mg 01/21/19 16:09 01/21/19 17:10 Ativan IV 2 mg Q1H PRN Administration CIWA-Ar 8-15 Pantoprazole Sodium 40 mg 01/22/19 22:00 Protonix PO BID SCOTT Sodium Chloride 10 ml 01/21/19 22:00 01/22/19 09:59 Sodium Chloride Flush Syringe 10 Ml IV 10 ml BID SCOTT Administration Sodium Chloride 10 ml 01/21/19 16:04 Sodium Chloride Flush Syringe 10 Ml IV PRN PRN LINE FLUSH
--- NOTE | 2019-01-22 12:18 | Gastroenterology Progress Note ---
Assessment and Plan 1.UGIB -H/H 8.2/24.4 -continue to monitor H/H and transfuse as needed -no active signs of bleeding this am -s/p EGD that revealed 3 column grade III-IV varices mid/distal esophageal with red whales (banded x 4) and old blood in stomach, otherwise normal -continue octreotide drip x 72 hrs -continue PPI -continue empiric antibiotics -okay to start on clears -continue supportive care -will follow 2.cirrhosis 2/2 ETOH abuse -alcohol cessation discussed/encouraged with patient- monitor for signs of withdrawal -continue to trend labs and supportive care -will need further management as outpatient Subjective Date of service: 01/22/19 Principal diagnosis: ascites, GI bleed Interval history: Patient resting in bed this am w/o acute distress and family at bedside. No active signs of bleeding. Denies abd pain or N/V. Objective - Constitutional Vitals: Temp Pulse Resp BP Pulse Ox 98.9 F 85 17 120/68 100 01/21/19 18:55 01/22/19 12:00 01/22/19 12:00 01/22/19 12:00 01/22/19 12:00 General appearance: no acute distress - Respiratory Respiratory effort: normal - Cardiovascular Rhythm: regular - Gastrointestinal General gastrointestinal: Present: soft, non-tender, non-distended, normal bowel sounds - Neurologic Neurological: alert and oriented x3 - Labs CBC & Chem 7: 01/21/19 15:24 01/21/19 13:03 Labs: Laboratory Results - last 24 hr 01/21/19 01/21/19 01/21/19 13:03 13:03 13:03 WBC 6.7 RBC 2.45 L Hgb 8.8 L Hct 26.2 L MCV 107 H MCH 36 H MCHC 34 RDW 21.5 H Plt Count 119 L Add Manual Diff Complete Total Counted 100 Seg Neuts % (Manual) 76.0 H Band Neutrophils % 0 Lymphocytes % (Manual) 18.0 Reactive Lymphs % (Man) 3.0 Monocytes % (Manual) 3.0 Eosinophils % (Manual) 0 Basophils % (Manual) 0 Metamyelocytes % 0 Myelocytes % 0 Promyelocytes % 0 Blast Cells % 0 Nucleated RBC % Not Reportable Seg Neutrophils # Man 5.1 Band Neutrophils # 0.0 Lymphocytes # (Manual) 1.2 Abs React Lymphs (Man) 0.2 Monocytes # (Manual) 0.2 Eosinophils # (Manual) 0.0 Basophils # (Manual) 0.0 Metamyelocytes # 0.0 Myelocytes # 0.0 Promyelocytes # 0.0 Blast Cells # 0.0 WBC Morphology Not Reportable Hypersegmented Neuts Not Reportable Hyposegmented Neuts Not Reportable Hypogranular Neuts Not Reportable Smudge Cells Not Reportable Toxic Granulation Not Reportable Toxic Vacuolation Not Reportable Dohle Bodies Not Reportable Pelger-Huet Anomaly Not Reportable Tara Rods Not Reportable Platelet Estimate Consistent w auto Clumped Platelets Not Reportable Plt Clumps, EDTA Not Reportable Large Platelets Rare Giant Platelets Not Reportable Platelet Satelliting Not Reportable Plt Morphology Comment Not Reportable RBC Morphology Not Reportable Dimorphic RBCs Not Reportable Polychromasia Not Reportable Hypochromasia 2+ Poikilocytosis 1+ Anisocytosis 1+ Microcytosis 1+ Macrocytosis Not Reportable Spherocytes Not Reportable Pappenheimer Bodies Not Reportable Sickle Cells Not Reportable Target Cells Not Reportable Tear Drop Cells Few Ovalocytes Few Stomatocytes Few Helmet Cells Not Reportable Logan-Scobey Bodies Not Reportable [place] Rings Not Reportable [place] Cells Not Reportable Bite Cells Not Reportable Crenated Cell Not Reportable Elliptocytes Not Reportable Acanthocytes (Spur) Not Reportable Rouleaux Not Reportable Hemoglobin C Crystals Not Reportable Schistocytes Not Reportable Malaria parasites Not Reportable Douglas Bodies Not Reportable Hem Pathologist Commnt No PT 19.0 H INR 1.64 H APTT 38.4 H Sodium 141 Potassium 4.5 Chloride 102.7 Carbon Dioxide 17 L Anion Gap 26 BUN 18 Creatinine 0.9 Estimated GFR > 60 BUN/Creatinine Ratio 20 Glucose 139 H Lactic Acid Calcium 8.0 L Total Bilirubin 2.70 H AST 156 H ALT 54 Alkaline Phosphatase 110 Troponin T < 0.010 Total Protein 6.7 Albumin 2.8 L Albumin/Globulin Ratio 0.7 Plasma/Serum Alcohol Blood Type Antibody Screen 01/21/19 01/21/19 01/21/19 13:03 14:09 14:09 WBC RBC Hgb Hct MCV MCH MCHC RDW Plt Count Add Manual Diff Total Counted Seg Neuts % (Manual) Band Neutrophils % Lymphocytes % (Manual) Reactive Lymphs % (Man) Monocytes % (Manual) Eosinophils % (Manual) Basophils % (Manual) Metamyelocytes % Myelocytes % Promyelocytes % Blast Cells % Nucleated RBC % Seg Neutrophils # Man Band Neutrophils # Lymphocytes # (Manual) Abs React Lymphs (Man) Monocytes # (Manual) Eosinophils # (Manual) Basophils # (Manual) Metamyelocytes # Myelocytes # Promyelocytes # Blast Cells # WBC Morphology Hypersegmented Neuts Hyposegmented Neuts Hypogranular Neuts Smudge Cells Toxic Granulation Toxic Vacuolation Dohle Bodies Pelger-Huet Anomaly Tara Rods Platelet Estimate Clumped Platelets Plt Clumps, EDTA Large Platelets Giant Platelets Platelet Satelliting Plt Morphology Comment RBC Morphology Dimorphic RBCs Polychromasia Hypochromasia Poikilocytosis Anisocytosis Microcytosis Macrocytosis Spherocytes Pappenheimer Bodies Sickle Cells Target Cells Tear Drop Cells Ovalocytes Stomatocytes Helmet Cells Logan-Scobey Bodies [place] Rings [place] Cells Bite Cells Crenated Cell Elliptocytes Acanthocytes (Spur) Rouleaux Hemoglobin C Crystals Schistocytes Malaria parasites Douglas Bodies Hem Pathologist Commnt PT INR APTT Sodium Potassium Chloride Carbon Dioxide Anion Gap BUN Creatinine Estimated GFR BUN/Creatinine Ratio Glucose Lactic Acid 7.30 H* Calcium Total Bilirubin AST ALT Alkaline Phosphatase Troponin T Total Protein Albumin Albumin/Globulin Ratio Plasma/Serum Alcohol 0.06 Blood Type A POSITIVE Antibody Screen Negative 01/21/19 01/21/19 01/21/19 15:24 15:24 20:44 WBC RBC Hgb 8.2 L Hct 24.4 L MCV MCH MCHC RDW Plt Count Add Manual Diff Total Counted Seg Neuts % (Manual) Band Neutrophils % Lymphocytes % (Manual) Reactive Lymphs % (Man) Monocytes % (Manual) Eosinophils % (Manual) Basophils % (Manual) Metamyelocytes % Myelocytes % Promyelocytes % Blast Cells % Nucleated RBC % Seg Neutrophils # Man Band Neutrophils # Lymphocytes # (Manual) Abs React Lymphs (Man) Monocytes # (Manual) Eosinophils # (Manual) Basophils # (Manual) Metamyelocytes # Myelocytes # Promyelocytes # Blast Cells # WBC Morphology Hypersegmented Neuts Hyposegmented Neuts Hypogranular Neuts Smudge Cells Toxic Granulation Toxic Vacuolation Dohle Bodies Pelger-Huet Anomaly Tara Rods Platelet Estimate Clumped Platelets Plt Clumps, EDTA Large Platelets Giant Platelets Platelet Satelliting Plt Morphology Comment RBC Morphology Dimorphic RBCs Polychromasia Hypochromasia Poikilocytosis Anisocytosis Microcytosis Macrocytosis Spherocytes Pappenheimer Bodies Sickle Cells Target Cells Tear Drop Cells Ovalocytes Stomatocytes Helmet Cells Logan-Scobey Bodies [place] Rings [place] Cells Bite Cells Crenated Cell Elliptocytes Acanthocytes (Spur) Rouleaux Hemoglobin C Crystals Schistocytes Malaria parasites Douglas Bodies Hem Pathologist Commnt PT INR APTT Sodium Potassium Chloride Carbon Dioxide Anion Gap BUN Creatinine Estimated GFR BUN/Creatinine Ratio Glucose Lactic Acid 7.40 H* 3.10 H* Calcium Total Bilirubin AST ALT Alkaline Phosphatase Troponin T Total Protein Albumin Albumin/Globulin Ratio Plasma/Serum Alcohol Blood Type Antibody Screen 01/21/19 01/22/19 23:36 06:06 WBC RBC Hgb Hct MCV MCH MCHC RDW Plt Count Add Manual Diff Total Counted Seg Neuts % (Manual) Band Neutrophils % Lymphocytes % (Manual) Reactive Lymphs % (Man) Monocytes % (Manual) Eosinophils % (Manual) Basophils % (Manual) Metamyelocytes % Myelocytes % Promyelocytes % Blast Cells % Nucleated RBC % Seg Neutrophils # Man Band Neutrophils # Lymphocytes # (Manual) Abs React Lymphs (Man) Monocytes # (Manual) Eosinophils # (Manual) Basophils # (Manual) Metamyelocytes # Myelocytes # Promyelocytes # Blast Cells # WBC Morphology Hypersegmented Neuts Hyposegmented Neuts Hypogranular Neuts Smudge Cells Toxic Granulation Toxic Vacuolation Dohle Bodies Pelger-Huet Anomaly Tara Rods Platelet Estimate Clumped Platelets Plt Clumps, EDTA Large Platelets Giant Platelets Platelet Satelliting Plt Morphology Comment RBC Morphology Dimorphic RBCs Polychromasia Hypochromasia Poikilocytosis Anisocytosis Microcytosis Macrocytosis Spherocytes Pappenheimer Bodies Sickle Cells Target Cells Tear Drop Cells Ovalocytes Stomatocytes Helmet Cells Logan-Scobey Bodies [place] Rings [place] Cells Bite Cells Crenated Cell Elliptocytes Acanthocytes (Spur) Rouleaux Hemoglobin C Crystals Schistocytes Malaria parasites Douglas Bodies Hem Pathologist Commnt PT INR APTT Sodium Potassium Chloride Carbon Dioxide Anion Gap BUN Creatinine Estimated GFR BUN/Creatinine Ratio Glucose Lactic Acid 2.30 H* 1.10 Calcium Total Bilirubin AST ALT Alkaline Phosphatase Troponin T Total Protein Albumin Albumin/Globulin Ratio Plasma/Serum Alcohol Blood Type Antibody Screen
[2019-01-22 13:10] LABS: INR 1.52 (0.87-1.13)
--- NOTE | 2019-01-22 15:59 | Event Note ---
Date: 01/22/19 Patient admitted for varceal bleed. Patient no hemetemisis to day. No nausea, No vomiting or abdominal pain. Patient has no complaint of chest pain or shortness of breath or cough. Patient denies any history of smoking. Patients chest xray reported lungs are clear. O2 saturation 100% on room air. Patient stable from pulmonary point of view. Signing off the case. If you need any pulmonary help, call us back. Steve Stock.
--- NOTE | 2019-01-22 16:06 | Consultation ---
REFERRING PHYSICIAN: Luther Norton MD INDICATION: GI bleed. HISTORY OF PRESENT ILLNESS: The patient is a 48-year-old black male with history of chronic alcohol abuse with a vague history of being told he had liver disease and vague liver, recognizes the term cirrhosis, now presents with signs of upper gastrointestinal bleed. The patient reports for the last 2 days, he has been having hematemesis, worsening over the last 8 hours. He reports no history of GI bleed in the past. Denies any significant NSAIDs or aspirin. The patient has a history of chronic alcohol abuse and last drink 3 days ago per him. He reports no other specific GI complaints, including diarrhea, constipation or abdominal pain. PAST MEDICAL HISTORY: Hypertension. MEDICATIONS: Reviewed and updated in chart. ALLERGIES: No known drug allergies. SOCIAL HISTORY: Reports alcohol abuse. FAMILY HISTORY: Negative for colon cancer, IBD, or liver disease. REVIEW OF SYSTEMS: GENERAL: Reports mild weakness. HEENT: No visual complaints or tinnitus. PULMONARY: No shortness of breath. No cough. No chest pain. GASTROINTESTINAL: Reports hematemesis. All points of 13-point review of systems otherwise negative. PHYSICAL EXAMINATION: VITAL SIGNS: Temperature of 98.7, pulse 120, respirations 20, blood pressure 120/63. GENERAL: Somewhat obese black male, in mild distress. HEENT: Pupils equal, round and reactive. PULMONARY: Rhonchi. CARDIOVASCULAR: Regular rate and rhythm. Normal S1, S2. ABDOMEN: Positive bowel sounds, soft. SKIN: No obvious rashes. LABORATORY DATA: Pertinent for white count 6.7, hemoglobin and hematocrit of 8.2 and 24.4, platelet count of 119. PT 19, INR 1.6, PTT 38.4. Chem-7 within normal limits. AST and ALT of 156 and 54 with a total bilirubin of 2.7 and an alkaline phosphatase of 110. ASSESSMENT AND PLAN: A 48-year-old black male presents with signs and symptoms of upper gastrointestinal bleed in the setting of a history of chronic alcohol abuse and a reported history of being told he had some liver disease. The patient's labs are suggestive of possible cirrhosis raising the possibility of variceal bleed. PLAN: 1. IV hydration. 2. Follow labs closely. 3. N.p.o. 4. We will need FFP now. 5. Octreotide bolus and drip as well as Protonix drip. 6. Plan EGD today. JOB# [id number] CAB/NTS
[2019-01-22] MEDS: PROTONIX PO SCH (21:58)
[2019-01-23] MEDS: BENADRYL PO PRN (03:35)
[2019-01-23] MEDS: SandoSTATIN 500 MCG in NACL 0.9% 100 ML IV SCH (03:35)
[2019-01-23 05:52] LABS: Hematocrit 20.1 % (35.5-45.6); Hemoglobin 6.8 gm/dl (11.8-15.2); Mean Corpuscular HGB Conc 34 % (32-34); Mean Corpuscular Volume 108 fl (84-94); Red Blood Count 1.86 M/mm3 (3.65-5.03); Red Cell Distribution Width 18.7 % (13.2-15.2)
[2019-01-23 05:56] LABS: Platelet Count 73 K/mm3 (140-440)
[2019-01-23 06:19] LABS: BUN/Creatinine Ratio 10; Blood Urea Nitrogen 8 mg/dL (9-20); Calcium 7.5 mg/dL (8.4-10.2)
[2019-01-23 06:20] LABS: Alanine Aminotransferase 44 units/L (7-56); Albumin 2.6 g/dL (3.9-5); Bilirubin,Direct 1.2 mg/dL (0-0.2); Hemolysis Index 0
[2019-01-23] MEDS ORDERED: NACL 0.9% 500 ML 500 ML IV ONE (06:45)
--- NOTE | 2019-01-23 06:47 | Event Note ---
Date: 01/23/19 Hgb 6.8 this am. Ordered type & screen and 1U PRBC.
--- NOTE | 2019-01-23 08:53 | Progress Note ---
Assessment and Plan Assessment and plan: GI bleed. 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 GI following. Hgb 6.8 today, and 1 unit PRBC ordered EtOH dependence. Continue CIWA protocol. Acute blood loss anemia. Continue PRBCs as needed. Follow-up CBC. Liver failure. Supportive care. Coagulopathy. Vitamin K as needed. Continue to monitor INR. History Interval history: Patient with GI bleed Hospitalist Physical - Physical exam Narrative exam: Gen: Not in acute distress, lying in bed, obese HEENT: Normocephalic, atraumatic Neck: supple, no JVD Heart: S1 and S2 reg, no murmurs, rubs or gallop Lungs: Clear, no crackles or wheeze Abd: soft, non tender, non distended, normal BS Ext: No edema, no clubbing, no cyanosis Neuro:awake,alert, Oriented X 3. No focal signs Psych: Normal mood - Constitutional Vitals: Temp Pulse Resp BP Pulse Ox 98.5 F 88 20 125/73 99 01/23/19 03:32 01/23/19 03:32 01/23/19 03:32 01/23/19 03:32 01/23/19 03:32 General appearance: Present: no acute distress Results - Labs CBC & Chem 7: 01/23/19 05:38 01/23/19 05:38 Labs: Laboratory Last Values WBC 5.8 K/mm3 (4.5-11.0) 01/23/19 05:38 RBC 1.86 M/mm3 (3.65-5.03) L 01/23/19 05:38 Hgb 6.8 gm/dl (11.8-15.2) L 01/23/19 05:38 Hct 20.1 % (35.5-45.6) L 01/23/19 05:38 MCV 108 fl (84-94) H 01/23/19 05:38 MCH 37 pg (28-32) H 01/23/19 05:38 MCHC 34 % (32-34) 01/23/19 05:38 RDW 18.7 % (13.2-15.2) H 01/23/19 05:38 Plt Count 73 K/mm3 (140-440) L 01/23/19 05:38 Add Manual Diff Complete 01/21/19 13:03 Total Counted 100 01/21/19 13:03 Seg Neuts % (Manual) 76.0 % (40.0-70.0) H 01/21/19 13:03 0 % 01/21/19 13:03 18.0 % (13.4-35.0) 01/21/19 13:03 Reactive Lymphs % (Man) 3.0 % 01/21/19 13:03 3.0 % (0.0-7.3) 01/21/19 13:03 0 % (0.0-4.3) 01/21/19 13:03 0 % (0.0-1.8) 01/21/19 13:03 0 % 01/21/19 13:03 0 % 01/21/19 13:03 0 % 01/21/19 13:03 0 % 01/21/19 13:03 Nucleated RBC % Not Reportable 01/21/19 13:03 Seg Neutrophils # Man 5.1 K/mm3 (1.8-7.7) 01/21/19 13:03 Band Neutrophils # 0.0 K/mm3 01/21/19 13:03 1.2 K/mm3 (1.2-5.4) 01/21/19 13:03 Abs React Lymphs (Man) 0.2 K/mm3 01/21/19 13:03 0.2 K/mm3 (0.0-0.8) 01/21/19 13:03 0.0 K/mm3 (0.0-0.4) 01/21/19 13:03 0.0 K/mm3 (0.0-0.1) 01/21/19 13:03 0.0 K/mm3 01/21/19 13:03 0.0 K/mm3 01/21/19 13:03 0.0 K/mm3 01/21/19 13:03 Blast Cells # 0.0 K/mm3 01/21/19 13:03 WBC Morphology TNR 01/23/19 05:38 Hypersegmented Neuts Not Reportable 01/21/19 13:03 Hyposegmented Neuts Not Reportable 01/21/19 13:03 Hypogranular Neuts Not Reportable 01/21/19 13:03 Not Reportable 01/21/19 13:03 Not Reportable 01/21/19 13:03 Not Reportable 01/21/19 13:03 Not Reportable 01/21/19 13:03 Not Reportable 01/21/19 13:03 Not Reportable 01/21/19 13:03 Consistent w auto 01/21/19 13:03 Not Reportable 01/21/19 13:03 Plt Clumps, EDTA Not Reportable 01/21/19 13:03 Rare 01/21/19 13:03 Not Reportable 01/21/19 13:03 Not Reportable 01/21/19 13:03 Plt Morphology Comment Not Reportable 01/21/19 13:03 RBC Morphology Not Reportable 01/21/19 13:03 Dimorphic RBCs Not Reportable 01/21/19 13:03 Not Reportable 01/21/19 13:03 2+ 01/21/19 13:03 1+ 01/21/19 13:03 1+ 01/21/19 13:03 1+ 01/21/19 13:03 Not Reportable 01/21/19 13:03 Not Reportable 01/21/19 13:03 Not Reportable 01/21/19 13:03 Not Reportable 01/21/19 13:03 Not Reportable 01/21/19 13:03 Few 01/21/19 13:03 Few 01/21/19 13:03 Few 01/21/19 13:03 Not Reportable 01/21/19 13:03 Not Reportable 01/21/19 13:03 Not Reportable 01/21/19 13:03 Not Reportable 01/21/19 13:03 Not Reportable 01/21/19 13:03 Not Reportable 01/21/19 13:03 Not Reportable 01/21/19 13:03 Acanthocytes (Spur) Not Reportable 01/21/19 13:03 Rouleaux Not Reportable 01/21/19 13:03 Not Reportable 01/21/19 13:03 Not Reportable 01/21/19 13:03 Not Reportable 01/21/19 13:03 Not Reportable 01/21/19 13:03 Hem Pathologist Commnt No 01/21/19 13:03 PT 17.9 Sec. (12.2-14.9) H 01/22/19 12:34 INR 1.52 (0.87-1.13) H 01/22/19 12:34 APTT 38.4 Sec. (24.2-36.6) H 01/21/19 13:03 Sodium 139 mmol/L (137-145) 01/23/19 05:38 Potassium 3.6 mmol/L (3.6-5.0) 01/23/19 05:38 Chloride 104.1 mmol/L (98-107) 01/23/19 05:38 Carbon Dioxide 27 mmol/L (22-30) D 01/23/19 05:38 12 mmol/L 01/23/19 05:38 BUN 8 mg/dL (9-20) L 01/23/19 05:38 0.8 mg/dL (0.8-1.5) 01/23/19 05:38 Estimated GFR > 60 ml/min 01/23/19 05:38 10 % 01/23/19 05:38 Glucose 106 mg/dL (75-100) H 01/23/19 05:38 Lactic Acid 1.10 mmol/L (0.7-2.0) 01/22/19 06:06 Calcium 7.5 mg/dL (8.4-10.2) L 01/23/19 05:38 2.00 mg/dL (0.1-1.2) H 01/23/19 05:38 1.2 mg/dL (0-0.2) H 01/23/19 05:38 0.8 mg/dL 01/23/19 05:38 AST 117 units/L (5-40) H 01/23/19 05:38 ALT 44 units/L (7-56) 01/23/19 05:38 98 units/L (35-129) 01/23/19 05:38 36.0 umol/L (25-60) 01/23/19 05:38 < 0.010 ng/mL (0.00-0.029) 01/21/19 13:03 6.2 g/dL (6.3-8.2) L 01/23/19 05:38 2.6 g/dL (3.9-5) L 01/23/19 05:38 0.7 % 01/23/19 05:38 Plasma/Serum Alcohol 0.06 % (0-0.07) 01/21/19 14:09 Blood Type A POSITIVE 01/21/19 13:03 Antibody Screen Negative 01/21/19 13:03 Crossmatch See Detail 01/21/19 13:03 Active Medications - Current Medications Current Medications: Generic Name Dose Route Start Last Admin Trade Name Freq PRN Reason Stop Dose Admin Albuterol 2.5 mg 01/21/19 16:04 Proventil IH Q3H PRN Shortness Of Breath Diphenhydramine HCl 25 mg 01/23/19 03:27 01/23/19 03:35 Benadryl PO 25 mg Q8H PRN Administration Itching Folic Acid 1 mg 01/23/19 10:00 Folvite PO DAILY SCOTT Hydralazine HCl 10 mg 01/21/19 16:07 Apresoline IV Q6H PRN Hypertension Octreotide Acetate 500 mcg/ 101 mls @ 5.05 mls/hr 01/22/19 09:00 01/23/19 03:35 Sodium Chloride IV 25 mcg/hr TITR SCOTT 5.05 mls/hr Administration Protocol 25 MCG/HR Lorazepam 2 mg 01/21/19 16:09 01/21/19 17:10 Ativan IV 2 mg Q1H PRN Administration CIWA-Ar 8-15 Multivitamins/Minerals 1 each 01/23/19 10:00 Theragran-M Tab PO QDAY SCOTT Pantoprazole Sodium 40 mg 01/22/19 22:00 01/22/19 21:58 Protonix PO 40 mg BID SCOTT Administration Sodium Chloride 10 ml 01/21/19 22:00 01/22/19 22:00 Sodium Chloride Flush Syringe 10 Ml IV 10 ml BID SCOTT Administration Sodium Chloride 10 ml 01/21/19 16:04 Sodium Chloride Flush Syringe 10 Ml IV PRN PRN LINE FLUSH Thiamine HCl 100 mg 01/23/19 10:00 Vitamin B-1 PO QDAY SCOTT
[2019-01-23 09:54] LABS: Basophils % (Manual) 0 % (0.0-1.8); Total Cells Counted 100
[2019-01-23 09:55] LABS: Anisocytosis 1+; Hypochromasia 1+; Macrocytosis 1+; Ovalocytes Few; Poikilocytosis 1+
[2019-01-23 09:56] LABS: Platelet Estimate Consistent w Auto; Smudge Cells Few
[2019-01-23] MEDS: PROTONIX PO SCH ×2 (10:07→21:10)
[2019-01-23] MEDS: VITAMIN B-1 PO SCH (10:07)
[2019-01-23] MEDS: FOLVITE PO SCH (10:08)
[2019-01-23] MEDS: THERAGRAN-M Tab PO SCH (10:08)
[2019-01-23] MEDS: SODIUM CHLORIDE FLUSH SYRINGE 10 ML IV SCH ×2 (10:10→21:11)
--- NOTE | 2019-01-23 10:51 | Gastroenterology Progress Note ---
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 Denies abd pain, N/V, or active signs of bleeding overnight or this am. Tolerating clears. Objective - Constitutional Vitals: Temp Pulse Resp BP Pulse Ox 98.5 F 88 20 125/73 98 01/23/19 03:32 01/23/19 03:32 01/23/19 03:32 01/23/19 03:32 01/23/19 10:29 General appearance: no acute distress - Respiratory Respiratory effort: normal - Cardiovascular Rhythm: regular - Gastrointestinal General gastrointestinal: Present: soft, non-tender, non-distended, normal bowel sounds - Labs CBC & Chem 7: 01/23/19 05:38 01/23/19 05:38 Labs: Laboratory Results - last 24 hr 01/21/19 01/22/19 01/23/19 13:03 12:34 05:38 WBC 5.8 RBC 1.86 L Hgb 6.8 L Hct 20.1 L MCV 108 H MCH 37 H MCHC 34 RDW 18.7 H Plt Count 73 L Add Manual Diff Complete Total Counted 100 Seg Neuts % (Manual) 73.0 H Band Neutrophils % 0 Lymphocytes % (Manual) 21.0 Reactive Lymphs % (Man) 0 Monocytes % (Manual) 5.0 Eosinophils % (Manual) 1.0 Basophils % (Manual) 0 Metamyelocytes % 0 Myelocytes % 0 Promyelocytes % 0 Blast Cells % 0 Nucleated RBC % 2.0 H Seg Neutrophils # Man 4.2 Band Neutrophils # 0.0 Lymphocytes # (Manual) 1.2 Abs React Lymphs (Man) 0.0 Monocytes # (Manual) 0.3 Eosinophils # (Manual) 0.1 Basophils # (Manual) 0.0 Metamyelocytes # 0.0 Myelocytes # 0.0 Promyelocytes # 0.0 Blast Cells # 0.0 WBC Morphology Not Reportable Hypersegmented Neuts Not Reportable Hyposegmented Neuts Not Reportable Hypogranular Neuts Not Reportable Smudge Cells Few Toxic Granulation Not Reportable Toxic Vacuolation Not Reportable Dohle Bodies Not Reportable Pelger-Huet Anomaly Not Reportable Tara Rods Not Reportable Platelet Estimate Consistent w auto Clumped Platelets Not Reportable Plt Clumps, EDTA Not Reportable Large Platelets Not Reportable Giant Platelets Not Reportable Platelet Satelliting Not Reportable Plt Morphology Comment Not Reportable RBC Morphology Not Reportable Dimorphic RBCs Not Reportable Polychromasia 1+ Hypochromasia 1+ Poikilocytosis 1+ Anisocytosis 1+ Microcytosis Few Macrocytosis 1+ Spherocytes Not Reportable Pappenheimer Bodies Not Reportable Sickle Cells Not Reportable Target Cells Not Reportable Tear Drop Cells Not Reportable Ovalocytes Few Helmet Cells Not Reportable [place] Bodies Not Reportable Addison Rings Not Reportable [place] Cells Not Reportable Bite Cells Not Reportable Crenated Cell Not Reportable Elliptocytes Not Reportable Acanthocytes (Spur) Not Reportable Rouleaux Not Reportable Hemoglobin C Crystals Not Reportable Schistocytes Not Reportable Malaria parasites Not Reportable Douglas Bodies Not Reportable Hem Pathologist Commnt No PT 17.9 H INR 1.52 H Sodium Potassium Chloride Carbon Dioxide Anion Gap BUN Creatinine Estimated GFR BUN/Creatinine Ratio Glucose Calcium Total Bilirubin Direct Bilirubin Indirect Bilirubin AST ALT Alkaline Phosphatase Ammonia Total Protein Albumin Albumin/Globulin Ratio Blood Type A POSITIVE Antibody Screen Negative Crossmatch See Detail 01/23/19 01/23/19 01/23/19 05:38 05:38 05:38 WBC RBC Hgb Hct MCV MCH MCHC RDW Plt Count Add Manual Diff Total Counted Seg Neuts % (Manual) Band Neutrophils % Lymphocytes % (Manual) Reactive Lymphs % (Man) Monocytes % (Manual) Eosinophils % (Manual) Basophils % (Manual) Metamyelocytes % Myelocytes % Promyelocytes % Blast Cells % Nucleated RBC % Seg Neutrophils # Man Band Neutrophils # Lymphocytes # (Manual) Abs React Lymphs (Man) Monocytes # (Manual) Eosinophils # (Manual) Basophils # (Manual) Metamyelocytes # Myelocytes # Promyelocytes # Blast Cells # WBC Morphology TNR Hypersegmented Neuts Hyposegmented Neuts Hypogranular Neuts Smudge Cells Toxic Granulation Toxic Vacuolation Dohle Bodies Pelger-Huet Anomaly Tara Rods Platelet Estimate Clumped Platelets Plt Clumps, EDTA Large Platelets Giant Platelets Platelet Satelliting Plt Morphology Comment RBC Morphology Dimorphic RBCs Polychromasia Hypochromasia Poikilocytosis Anisocytosis Microcytosis Macrocytosis Spherocytes Pappenheimer Bodies Sickle Cells Target Cells Tear Drop Cells Ovalocytes Helmet Cells [place] Bodies Addison Rings [place] Cells Bite Cells Crenated Cell Elliptocytes Acanthocytes (Spur) Rouleaux Hemoglobin C Crystals Schistocytes Malaria parasites Douglas Bodies Hem Pathologist Commnt PT INR Sodium 139 Potassium 3.6 Chloride 104.1 Carbon Dioxide 27 D Anion Gap 12 BUN 8 L Creatinine 0.8 Estimated GFR > 60 BUN/Creatinine Ratio 10 Glucose 106 H Calcium 7.5 L Total Bilirubin 2.00 H Direct Bilirubin 1.2 H Indirect Bilirubin 0.8 AST 117 H ALT 44 Alkaline Phosphatase 98 Ammonia 36.0 Total Protein 6.2 L Albumin 2.6 L Albumin/Globulin Ratio 0.7 Blood Type Antibody Screen Crossmatch
[2019-01-23] MEDS ORDERED: NACL 0.9% 500 ML 500 ML IV NR (13:00)
[2019-01-23 21:16] LABS: Hematocrit 23.6 % (35.5-45.6); Hemoglobin 8.1 gm/dl (11.8-15.2)
[2019-01-24] MEDS: SandoSTATIN 500 MCG in NACL 0.9% 100 ML IV SCH ×2 (00:48→21:25)
[2019-01-24] MEDS: BENADRYL PO PRN (01:55)
[2019-01-24 06:48] LABS: Hematocrit 24.2 % (35.5-45.6); Hemoglobin 8.4 gm/dl (11.8-15.2); Mean Corpuscular HGB Conc 35 % (32-34); Mean Corpuscular Volume 107 fl (84-94); Red Blood Count 2.27 M/mm3 (3.65-5.03)
[2019-01-24 06:50] LABS: Platelet Count 95 K/mm3 (140-440); Red Cell Distribution Width 21.1 % (13.2-15.2)
[2019-01-24 07:14] LABS: BUN/Creatinine Ratio 9; Blood Urea Nitrogen 6 mg/dL (9-20); Calcium 8.2 mg/dL (8.4-10.2); Hemolysis Index 115
--- NOTE | 2019-01-24 09:11 | Progress Note ---
Assessment and Plan Assessment and plan: GI bleed. 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 GI following. Hgb 8.4 after 1 unit PRBC given EtOH dependence. Continue CIWA protocol. Acute blood loss anemia. Continue PRBCs as needed. Follow-up CBC. Liver failure. Supportive care. Coagulopathy. Vitamin K as needed. Continue to monitor INR. History Interval history: Patient with GI bleed No stools for 3 days Hospitalist Physical - Physical exam Narrative exam: Gen: Not in acute distress, lying in bed, obese HEENT: Normocephalic, atraumatic Neck: supple, no JVD Heart: S1 and S2 reg, no murmurs, rubs or gallop Lungs: Clear, no crackles or wheeze Abd: soft, non tender, non distended, normal BS Ext: No edema, no clubbing, no cyanosis Neuro:awake,alert, Oriented X 3. No focal signs Psych: Normal mood - Constitutional Vitals: Temp Pulse Resp BP Pulse Ox 98.4 F 83 18 152/75 99 01/24/19 07:41 01/24/19 07:41 01/24/19 07:41 01/24/19 07:41 01/24/19 07:41 General appearance: Present: no acute distress Results - Labs CBC & Chem 7: 01/24/19 04:28 01/24/19 04:28 Labs: Laboratory Last Values WBC 7.0 K/mm3 (4.5-11.0) 01/24/19 04:28 RBC 2.27 M/mm3 (3.65-5.03) L 01/24/19 04:28 Hgb 8.4 gm/dl (11.8-15.2) L 01/24/19 04:28 Hct 24.2 % (35.5-45.6) L 01/24/19 04:28 MCV 107 fl (84-94) H 01/24/19 04:28 MCH 37 pg (28-32) H 01/24/19 04:28 MCHC 35 % (32-34) H 01/24/19 04:28 RDW 21.1 % (13.2-15.2) H 01/24/19 04:28 Plt Count 95 K/mm3 (140-440) L 01/24/19 04:28 Add Manual Diff Complete 01/23/19 05:38 Total Counted 100 01/23/19 05:38 Seg Neuts % (Manual) 73.0 % (40.0-70.0) H 01/23/19 05:38 0 % 01/23/19 05:38 21.0 % (13.4-35.0) 01/23/19 05:38 Reactive Lymphs % (Man) 0 % 01/23/19 05:38 5.0 % (0.0-7.3) 01/23/19 05:38 1.0 % (0.0-4.3) 01/23/19 05:38 0 % (0.0-1.8) 01/23/19 05:38 0 % 01/23/19 05:38 0 % 01/23/19 05:38 0 % 01/23/19 05:38 0 % 01/23/19 05:38 Nucleated RBC % 2.0 % (0.0-0.9) H 01/23/19 05:38 Seg Neutrophils # Man 4.2 K/mm3 (1.8-7.7) 01/23/19 05:38 Band Neutrophils # 0.0 K/mm3 01/23/19 05:38 1.2 K/mm3 (1.2-5.4) 01/23/19 05:38 Abs React Lymphs (Man) 0.0 K/mm3 01/23/19 05:38 0.3 K/mm3 (0.0-0.8) 01/23/19 05:38 0.1 K/mm3 (0.0-0.4) 01/23/19 05:38 0.0 K/mm3 (0.0-0.1) 01/23/19 05:38 0.0 K/mm3 01/23/19 05:38 0.0 K/mm3 01/23/19 05:38 0.0 K/mm3 01/23/19 05:38 Blast Cells # 0.0 K/mm3 01/23/19 05:38 WBC Morphology Not Reportable 01/23/19 05:38 WBC Morphology TNR 01/23/19 05:38 Hypersegmented Neuts Not Reportable 01/23/19 05:38 Hyposegmented Neuts Not Reportable 01/23/19 05:38 Hypogranular Neuts Not Reportable 01/23/19 05:38 Few 01/23/19 05:38 Not Reportable 01/23/19 05:38 Not Reportable 01/23/19 05:38 Not Reportable 01/23/19 05:38 Not Reportable 01/23/19 05:38 Not Reportable 01/23/19 05:38 Consistent w auto 01/23/19 05:38 Not Reportable 01/23/19 05:38 Plt Clumps, EDTA Not Reportable 01/23/19 05:38 Not Reportable 01/23/19 05:38 Not Reportable 01/23/19 05:38 Not Reportable 01/23/19 05:38 Plt Morphology Comment Not Reportable 01/23/19 05:38 RBC Morphology Not Reportable 01/23/19 05:38 Dimorphic RBCs Not Reportable 01/23/19 05:38 1+ 01/23/19 05:38 1+ 01/23/19 05:38 1+ 01/23/19 05:38 1+ 01/23/19 05:38 Few 01/23/19 05:38 1+ 01/23/19 05:38 Not Reportable 01/23/19 05:38 Not Reportable 01/23/19 05:38 Not Reportable 01/23/19 05:38 Not Reportable 01/23/19 05:38 Not Reportable 01/23/19 05:38 Few 01/23/19 05:38 Few 01/21/19 13:03 Not Reportable 01/23/19 05:38 Not Reportable 01/23/19 05:38 Not Reportable 01/23/19 05:38 Not Reportable 01/23/19 05:38 Not Reportable 01/23/19 05:38 Not Reportable 01/23/19 05:38 Not Reportable 01/23/19 05:38 Acanthocytes (Spur) Not Reportable 01/23/19 05:38 Rouleaux Not Reportable 01/23/19 05:38 Not Reportable 01/23/19 05:38 Not Reportable 01/23/19 05:38 Not Reportable 01/23/19 05:38 Not Reportable 01/23/19 05:38 Hem Pathologist Commnt No 01/23/19 05:38 PT 17.9 Sec. (12.2-14.9) H 01/22/19 12:34 INR 1.52 (0.87-1.13) H 01/22/19 12:34 APTT 38.4 Sec. (24.2-36.6) H 01/21/19 13:03 Sodium 140 mmol/L (137-145) 01/24/19 04:28 Potassium 4.6 mmol/L (3.6-5.0) D 01/24/19 04:28 Chloride 105.9 mmol/L (98-107) 01/24/19 04:28 Carbon Dioxide 24 mmol/L (22-30) 01/24/19 04:28 15 mmol/L 01/24/19 04:28 BUN 6 mg/dL (9-20) L 01/24/19 04:28 0.7 mg/dL (0.8-1.5) L 01/24/19 04:28 Estimated GFR > 60 ml/min 01/24/19 04:28 9 % 01/24/19 04:28 Glucose 102 mg/dL (75-100) H 01/24/19 04:28 Lactic Acid 1.10 mmol/L (0.7-2.0) 01/22/19 06:06 Calcium 8.2 mg/dL (8.4-10.2) L 01/24/19 04:28 2.00 mg/dL (0.1-1.2) H 01/23/19 05:38 1.2 mg/dL (0-0.2) H 01/23/19 05:38 0.8 mg/dL 01/23/19 05:38 AST 117 units/L (5-40) H 01/23/19 05:38 ALT 44 units/L (7-56) 01/23/19 05:38 98 units/L (35-129) 01/23/19 05:38 36.0 umol/L (25-60) 01/23/19 05:38 < 0.010 ng/mL (0.00-0.029) 01/21/19 13:03 6.2 g/dL (6.3-8.2) L 01/23/19 05:38 2.6 g/dL (3.9-5) L 01/23/19 05:38 0.7 % 01/23/19 05:38 Plasma/Serum Alcohol 0.06 % (0-0.07) 01/21/19 14:09 Blood Type A POSITIVE 01/21/19 13:03 Antibody Screen Negative 01/21/19 13:03 Crossmatch See Detail 01/21/19 13:03 Active Medications - Current Medications Current Medications: Generic Name Dose Route Start Last Admin Trade Name Freq PRN Reason Stop Dose Admin Albuterol 2.5 mg 01/21/19 16:04 Proventil IH Q3H PRN Shortness Of Breath Diphenhydramine HCl 25 mg 01/23/19 03:27 01/24/19 01:55 Benadryl PO 25 mg Q8H PRN Administration Itching Folic Acid 1 mg 01/23/19 10:00 01/23/19 10:08 Folvite PO 1 mg DAILY SCOTT Administration Hydralazine HCl 10 mg 01/21/19 16:07 Apresoline IV Q6H PRN Hypertension Octreotide Acetate 500 mcg/ 101 mls @ 5.05 mls/hr 01/22/19 09:00 01/24/19 00:48 Sodium Chloride IV 25 mcg/hr TITR SCOTT 5.05 mls/hr Administration Protocol 25 MCG/HR Lorazepam 2 mg 01/21/19 16:09 01/21/19 17:10 Ativan IV 2 mg Q1H PRN Administration CIWA-Ar 8-15 Multivitamins/Minerals 1 each 01/23/19 10:00 01/23/19 10:08 Theragran-M Tab PO 1 each QDAY SCOTT Administration Pantoprazole Sodium 40 mg 01/22/19 22:00 01/23/19 21:10 Protonix PO 40 mg BID SCOTT Administration Sodium Chloride 10 ml 01/21/19 22:00 01/23/19 21:11 Sodium Chloride Flush Syringe 10 Ml IV 10 ml BID SCOTT Administration Sodium Chloride 10 ml 01/21/19 16:04 Sodium Chloride Flush Syringe 10 Ml IV PRN PRN LINE FLUSH Thiamine HCl 100 mg 01/23/19 10:00 01/23/19 10:07 Vitamin B-1 PO 100 mg QDAY SCOTT Administration
[2019-01-24] MEDS: PROTONIX PO SCH ×2 (10:22→21:25)
[2019-01-24] MEDS: THERAGRAN-M Tab PO SCH (10:22)
[2019-01-24] MEDS: VITAMIN B-1 PO SCH (10:22)
[2019-01-24] MEDS: SODIUM CHLORIDE FLUSH SYRINGE 10 ML IV SCH ×2 (10:23→21:25)
[2019-01-24] MEDS: FOLVITE PO SCH (10:27)
--- NOTE | 2019-01-24 14:23 | Gastroenterology Progress Note ---
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 Denies abd pain or N/V. Tolerating clears. -okay to advance diet to GI soft (would not advance further) -continue octreotide drip x 72 hrs then transition to PO Nadolol 20mg daily -continue PPI -continue prophylactic antibiotics x total of 7 days -continue supportive care -will follow 2.cirrhosis 2/2 ETOH abuse -alcohol cessation discussed/encouraged with patient- monitor for signs of withdrawal -continue to trend labs and supportive care -will need further management as outpatient Subjective Date of service: 01/24/19 Principal diagnosis: ascites, GI bleed Interval history: No acute distress or GI complaints. Denies any active signs of bleeding overnight or this am. Tolerating clears. Objective - Constitutional Vitals: Temp Pulse Resp BP Pulse Ox 98.4 F 84 18 152/75 99 01/24/19 07:41 01/24/19 10:00 01/24/19 10:00 01/24/19 07:41 01/24/19 07:41 General appearance: no acute distress - Respiratory Respiratory effort: normal - Cardiovascular Rhythm: regular - Gastrointestinal General gastrointestinal: Present: soft, non-tender, non-distended, normal bowel sounds - Neurologic Neurological: alert and oriented x3 - Labs CBC & Chem 7: 01/24/19 04:28 01/24/19 04:28 Labs: Laboratory Results - last 24 hr 01/21/19 01/23/19 01/24/19 13:03 21:02 04:28 WBC 7.0 RBC 2.27 L Hgb 8.1 L 8.4 L Hct 23.6 L 24.2 L MCV 107 H MCH 37 H MCHC 35 H RDW 21.1 H Plt Count 95 L Sodium Potassium Chloride Carbon Dioxide Anion Gap BUN Creatinine Estimated GFR BUN/Creatinine Ratio Glucose Calcium Blood Type A POSITIVE Antibody Screen Negative Crossmatch See Detail 01/24/19 04:28 WBC RBC Hgb Hct MCV MCH MCHC RDW Plt Count Sodium 140 Potassium 4.6 D Chloride 105.9 Carbon Dioxide 24 Anion Gap 15 BUN 6 L Creatinine 0.7 L Estimated GFR > 60 BUN/Creatinine Ratio 9 Glucose 102 H Calcium 8.2 L Blood Type Antibody Screen Crossmatch
[2019-01-24] MEDS: ROCEPHIN/NS 1 GM/50 ML 1 GM/50 ML BAG IV SCH (21:30)
--- NOTE | 2019-01-25 08:46 | Progress Note ---
Subjective Date of service: 01/25/19 Principal diagnosis: ascites, GI bleed Interval history: Patient is seen today for: Seen and examined at bedside; 24hour events reviewed; nursing and respiratory care staff consulted; no adverse overnight events reported to me; Objective Vital Signs - 12hr 01/24/19 01/24/19 01/25/19 22:25 23:47 03:39 Temperature 98.7 F 98.8 F Pulse Rate 77 82 Pulse Rate [ 77 Apical] Respiratory 18 18 18 Rate Blood Pressure 115/71 135/85 O2 Sat by Pulse 100 100 99 Oximetry CBC and BMP: 01/24/19 04:28 01/24/19 04:28 ABG, PT/INR, D-dimer: PT/INR, D-dimer PT 17.9 Sec. (12.2-14.9) H 01/22/19 12:34 INR 1.52 (0.87-1.13) H 01/22/19 12:34 Abnormal lab findings: Abnormal Labs 01/21/19 01/21/19 01/21/19 13:03 13:03 13:03 RBC 2.45 L Hgb 8.8 L Hct 26.2 L MCV 107 H MCH 36 H MCHC RDW 21.5 H Plt Count 119 L Seg Neuts % (Manual) 76.0 H Nucleated RBC % PT 19.0 H INR 1.64 H APTT 38.4 H Carbon Dioxide 17 L BUN Creatinine Glucose 139 H Lactic Acid Calcium 8.0 L Total Bilirubin 2.70 H Direct Bilirubin AST 156 H Total Protein Albumin 2.8 L Crossmatch 01/21/19 01/21/19 01/21/19 13:03 14:09 15:24 RBC Hgb Hct MCV MCH MCHC RDW Plt Count Seg Neuts % (Manual) Nucleated RBC % PT INR APTT Carbon Dioxide BUN Creatinine Glucose Lactic Acid 7.30 H* 7.40 H* Calcium Total Bilirubin Direct Bilirubin AST Total Protein Albumin Crossmatch See Detail 01/21/19 01/21/19 01/21/19 15:24 20:44 23:36 RBC Hgb 8.2 L Hct 24.4 L MCV MCH MCHC RDW Plt Count Seg Neuts % (Manual) Nucleated RBC % PT INR APTT Carbon Dioxide BUN Creatinine Glucose Lactic Acid 3.10 H* 2.30 H* Calcium Total Bilirubin Direct Bilirubin AST Total Protein Albumin Crossmatch 01/22/19 01/23/19 01/23/19 12:34 05:38 05:38 RBC 1.86 L Hgb 6.8 L Hct 20.1 L MCV 108 H MCH 37 H MCHC RDW 18.7 H Plt Count 73 L Seg Neuts % (Manual) 73.0 H Nucleated RBC % 2.0 H PT 17.9 H INR 1.52 H APTT Carbon Dioxide BUN 8 L Creatinine Glucose 106 H Lactic Acid Calcium 7.5 L Total Bilirubin 2.00 H Direct Bilirubin 1.2 H AST 117 H Total Protein 6.2 L Albumin 2.6 L Crossmatch 01/23/19 01/24/19 01/24/19 21:02 04:28 04:28 RBC 2.27 L Hgb 8.1 L 8.4 L Hct 23.6 L 24.2 L MCV 107 H MCH 37 H MCHC 35 H RDW 21.1 H Plt Count 95 L Seg Neuts % (Manual) Nucleated RBC % PT INR APTT Carbon Dioxide BUN 6 L Creatinine 0.7 L Glucose 102 H Lactic Acid Calcium 8.2 L Total Bilirubin Direct Bilirubin AST Total Protein Albumin Crossmatch
[2019-01-25 08:52] LABS: Hematocrit 27.4 % (35.5-45.6); Hemoglobin 9.1 gm/dl (11.8-15.2)
[2019-01-25] MEDS: THERAGRAN-M Tab PO SCH (10:14)
[2019-01-25] MEDS: VITAMIN B-1 PO SCH (10:14)
[2019-01-25] MEDS: FOLVITE PO SCH (10:14)
[2019-01-25] MEDS: SODIUM CHLORIDE FLUSH SYRINGE 10 ML IV SCH (10:14)
[2019-01-25] MEDS: ROCEPHIN/NS 1 GM/50 ML 1 GM/50 ML BAG IV SCH (10:14)
[2019-01-25] MEDS: PROTONIX PO SCH (10:14)
[2019-01-25 14:34] VITALS: BP 126/77
--- NOTE | 2019-01-25 14:57 | Gastroenterology Progress Note ---
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 Denies abd pain or N/V. Tolerating diet. -continue GI soft diet (would not advance further) -okay to d/c octreotide drip and transition to PO Nadolol 20mg daily -continue PPI -continue prophylactic antibiotics x total of 7 days (may transition to PO cipro 500mg BID) -continue supportive care -patient okay to be d/c per GI standpoint on current medications with f/u in clinic in ~1-2 weeks -will sign off, please call if needed. 2.cirrhosis 2/2 ETOH abuse -alcohol cessation discussed/encouraged with patient- monitor for signs of withdrawal -continue to trend labs and supportive care -further management as outpatient Subjective Date of service: 01/25/19 Principal diagnosis: ascites, GI bleed Interval history: No acute distress or GI complaints. Denies any active signs of bleeding overnight or this am. Tolerating diet. Objective - Constitutional Vitals: Temp Pulse Resp BP Pulse Ox 98.5 F 80 16 126/77 98 01/25/19 12:34 01/25/19 12:34 01/25/19 12:34 01/25/19 12:34 01/25/19 12:34 General appearance: no acute distress - EENT Eyes: PERRL, EOM intact ENT: hearing intact - Respiratory Respiratory effort: normal - Cardiovascular Rhythm: regular - Gastrointestinal General gastrointestinal: Present: soft, non-tender, non-distended, normal bowel sounds - Neurologic Neurological: alert and oriented x3 - Labs CBC & Chem 7: 01/25/19 08:22 01/24/19 04:28 Labs: Laboratory Results - last 24 hr 01/25/19 08:22 Hgb 9.1 L Hct 27.4 L
--- NOTE | 2019-01-25 15:04 | Discharge Summary ---
Providers - Providers Date of Admission: 01/21/19 16:04 Date of discharge: 01/25/19 Attending physician: ALMA SILVESTRE 01/21/19 16:07 Consult to Physician [CONS] Urgent Comment: Dr. Naik spoke with Dr. Magdaleno @ [id number] Consulting Provider: JOSETTE MAGDALENO Physician Instructions: Reason For Exam: Ascites 01/22/19 09:11 Consult to Physician [CONS] Routine Comment: Consulting Provider: NATALIYA HU Physician Instructions: Reason For Exam: CRITICAL CARE [facility] Condition: Fair Hospital course: Patient is 48 YO Male with alcohol dependence presented to ED for evaluation for multiple episodes af hematemesis over 2 days, vomiting. Patient stated that his last drink of alcohol was 2 days earlier.. EMS notified and upon arrival the patient was found to be in distress, and transported to [facility]. Pt seen and evaluated in ED and found to have evidence of Upper GI Bleed, as well as suspected Esophageal Varices. Hemoglobin was 6.8 and INR 1.64. He was admitted to ICU and initiated on Octreotide, Protonix, as well as transfused 1 unit PRBC and 1 unit FFP GI bleed. 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 GI following. Post procedure h/h was stable So was discharged home on 01/25/19 EtOH dependence. Continue CIWA protocol. Acute blood loss anemia. Continue PRBCs as needed. Follow-up CBC. Liver failure. Supportive care. Coagulopathy. Vitamin K given Total time spent on discharge, 33 mins Disposition: DC-01 TO HOME OR SELFCARE - Discharge Diagnoses (1) Esophageal varices with bleeding Status: Acute (2) Acute blood loss anemia Status: Acute (3) Coagulopathy Status: Acute (4) EtOH dependence Status: Acute Qualifiers: Substance use status: with intoxication (5) GI bleed Status: Acute Qualifiers: GI bleed type/associated pathology: unspecified gastrointestinal hemorrhage type Qualified Code(s): K92.2 - Gastrointestinal hemorrhage, unspecified Core Measure Documentation - Palliative Care Palliative Care/ Comfort Measures: Not Applicable - Core Measures Any of the following diagnoses?: none Exam - Constitutional Vitals: Temp Pulse Resp BP Pulse Ox 98.5 F 80 16 126/77 98 01/25/19 12:34 01/25/19 12:34 01/25/19 12:34 01/25/19 12:34 01/25/19 12:34 Plan Activity: no restrictions Diet: low fat, low cholesterol, low salt Additional Instructions: 1.Follow up with PCP or [facility] in 1 week. 2.Follow up with Dr. Tejas Magdaleno in 1 week Follow up with: [place] [facility] [Primary Care Provider] - 3-5 Days Forms: Discharge Signature Page Prescriptions: Ciprofloxacin HCl [Ciprofloxacin TAB] 500 mg PO Q12HR #10 tab Nadolol [Corgard] 20 mg PO QDAY #30 tablet Folic Acid [Folvite] 1 mg PO DAILY #30 tablet Multivitamin Tab W-MINERAL [Multiple Vitamin/Mineral (Theragran M)] 1 each PO QDAY #30 tablet Pantoprazole [Protonix TAB] 40 mg PO BID #60 tablet Thiamine [Vitamin B-1] 100 mg PO QDAY #30 tablet
[2019-01-26] MEDS ORDERED: CORGARD PO SCH (10:00)
== END 2019-01-25 18:46 | disposition home or self-care (01) | DRG 432 ==
LOC: ED 12:33 → CC1 16:04 → 4A 01-22 14:16
PROVIDERS: ADMIT Internal Medicine; ATTEND Internal Medicine
PROC: 30233K1 Transfusion of Nonautologous Frozen Plasma into Peripheral Vein, Percutaneous Approach (ICD-10-PCS; principal; 2019-01-21)
PROC: 06L38CZ Occlusion of Esophageal Vein with Extraluminal Device, Via Natural or Artificial Opening Endoscopic (ICD-10-PCS; 2019-01-21)
PROC: 30233N1 Transfusion of Nonautologous Red Blood Cells into Peripheral Vein, Percutaneous Approach (ICD-10-PCS; 2019-01-23)
DX: K70.40 Alcoholic hepatic failure without coma (principal); I85.11 Secondary esophageal varices with bleeding; D62 Acute posthemorrhagic anemia; D68.9 Coagulation defect, unspecified; F10.20 Alcohol dependence, uncomplicated; Y90.9 Presence of alcohol in blood, level not specified; I10 Essential (primary) hypertension; E80.6 Other disorders of bilirubin metabolism; Z87.891 Personal history of nicotine dependence; K70.30 Alcoholic cirrhosis of liver without ascites; K44.9 Diaphragmatic hernia without obstruction or gangrene
CPT/HCPCS: 36415; 36430; 74018; 74022; 80048; 80053; 80076; 80320; 82140; 84484; 85007; 85014; 85018; 85025; 85027; 85610; 85730; 86850; 86900; 86901; 86920; 87040; 93005; 93010; 94760; G0378; C9113; G0480; J0696; J2001; J2060; J2250; J2354; J2370; J2405; J2704; J2765; J3010; J3411; J7030; J7040; P9016; P9017

== ENCOUNTER 2020-03-21 21:07 | Inpatient (IN) | payer BC ==
[2020-03-21] MEDS ORDERED: ASPIRIN 325 MG TAB PO ONE (21:30)
[2020-03-21 21:51] LABS: Basophils # (Auto) 0.1 K/mm3 (0.0-0.1); Basophils % (Auto) 1.3 % (0.0-1.8); Eosinophils % (Auto) 0.1 % (0.0-4.3); Hemoglobin 9.2 gm/dl (11.8-15.2); Lymphocytes # (Auto) 1.2 K/mm3 (1.2-5.4); Lymphocytes % (Auto) 16.5 % (13.4-35.0); Mean Corpuscular HGB Conc 32 % (32-34); Mean Corpuscular Volume 80 fl (84-94); Monocytes # (Auto) 0.9 K/mm3 (0.0-0.8); Monocytes % (Auto) 12.1 % (0.0-7.3); Platelet Count 151 K/mm3 (140-440); Red Blood Count 3.61 M/mm3 (3.65-5.03)
[2020-03-21 21:52] LABS: Red Cell Distribution Width 22.4 % (13.2-15.2)
[2020-03-21 22:02] LABS: Blood Urea Nitrogen 18 mg/dL (9-20); Calcium 8.6 mg/dL (8.4-10.2); Hemolysis Index 2
[2020-03-21 22:07] LABS: BUN/Creatinine Ratio 30
--- NOTE | 2020-03-21 22:34 | XRay Report ---
CHEST 1 VIEW INDICATION / CLINICAL INFORMATION: Chest Pain. COMPARISON: 10/29/2019 FINDINGS: SUPPORT DEVICES: None. HEART / MEDIASTINUM: No significant abnormality. LUNGS / PLEURA: No significant pulmonary or pleural abnormality. No pneumothorax. ADDITIONAL FINDINGS: No significant additional findings. IMPRESSION: 1. No acute findings. Signer Name: Wero Martinez MD Signed: 03/21/2020 10:30 PM Workstation Name: [id number]
--- NOTE | 2020-03-21 23:04 | Emergency Department Report ---
ED Chest Pain HPI - General Chief Complaint: Chest Pain Stated Complaint: CHEST PAIN, NAUSEA, AND VOMITING PUI?: No Time Seen by Provider: 03/21/20 22:27 Source: patient Mode of arrival: Ambulatory Limitations: No Limitations - History of Present Illness Initial Comments: Patient is a 49-year-old male that presents to the emergency room with complaints of chest pain, nausea, vomiting. Patient states his chest pain starts in the epigastric region and radiates up. Patient describes the chest pain as a burning. Patient states he drinks 6-8 beers per day. Patient states he has not had a drink in 2 days. Patient states his symptoms started today at noon. Patient states he had some blood in his vomitus. Patient states it was bright red blood. Patient also complains of melena. Patient denies shortness of breath. Patient denies fever and chills. Patient denies diaphoresis. Patient denies anxiety. Patient denies recent travel. Patient denies recent international travel. Patient denies exposure to the novel coronavirus. Patient denies sick contacts. Patient denies fever and chills. Patient denies cough. Patient denies diarrhea. Patient denies coming in contact with anybody with symptoms of the novel coronavirus. MD Complaint: chest pain -: Sudden Onset: during rest Pain Location: substernal, epigastric Pain Radiation: none Severity scale (0 -10): 0 Quality: other (burning. ) Consistency: now resolved Improves With: rest Worsens With: eating, movement re: nausea, vomting Other Symptoms: burping Treatments Prior to Arrival: none Aspirin use within the Past 7 Days: (0) No - Related Data On Oral Contraceptives: No Previous Rx's Medication Instructions Recorded Last Taken Type Folic Acid [Folvite] 1 mg PO DAILY #30 tablet 11/01/19 Unknown Rx Multivitamin Tab W-MINERAL 1 each PO QDAY #30 tablet 11/01/19 Unknown Rx [Multiple Vitamin/Mineral (Theragran M)] Pantoprazole [Protonix TAB] 40 mg PO BID #60 tablet 11/01/19 Unknown Rx Thiamine [Vitamin B-1] 100 mg PO QDAY #30 tablet 11/01/19 Unknown Rx nadoloL [Corgard] 20 mg PO QDAY #30 tablet 11/01/19 Unknown Rx Allergies Allergy/AdvReac Type Severity Reaction Status Date / Time No Known Allergies Allergy Unverified 05/30/13 18:21 Heart Score - HEART Score History: Slightly suspicious EKG: Normal Age: 45-65 Risk factors: No known risk factors Troponin: < normal limit HEART Score: 1 ED Review of Systems ROS: Stated complaint: CHEST PAIN, NAUSEA, AND VOMITING Other details as noted in HPI Constitutional: denies: chills, fever Eyes: denies: eye pain, eye discharge, vision change ENT: denies: ear pain, throat pain Respiratory: denies: cough, shortness of breath, wheezing Cardiovascular: chest pain. denies: palpitations Endocrine: no symptoms reported Gastrointestinal: abdominal pain, nausea, vomiting, hematemesis, melena. denies: diarrhea Genitourinary: denies: urgency, dysuria Musculoskeletal: denies: back pain, joint swelling, arthralgia Skin: denies: rash, lesions Neurological: denies: headache, weakness, paresthesias Psychiatric: denies: anxiety, depression Hematological/Lymphatic: denies: easy bleeding, easy bruising ED Past Medical Hx - Past Medical History Previous Medical History?: Yes Hx Hypertension: Yes Hx Heart Attack/AMI: No Hx Congestive Heart Failure: No Hx Diabetes: No Hx Liver Disease: Yes (Heavy ETOh abuse. Increase AST, Low albumin) Hx Sickle Cell Disease: No Hx Asthma: No Hx COPD: No Hx HIV: No - Surgical History Past Surgical History?: No - Family History Family history: no significant - Social History Smoking Status: Never Smoker Substance Use Type: Alcohol (6-8 beers per day) - Medications Home Medications: Home Medications Medication Instructions Recorded Confirmed Last Taken Type Folic Acid [Folvite] 1 mg PO DAILY #30 tablet 11/01/19 Unknown Rx Multivitamin Tab W-MINERAL 1 each PO QDAY #30 tablet 11/01/19 Unknown Rx [Multiple Vitamin/Mineral (Theragran M)] Pantoprazole [Protonix TAB] 40 mg PO BID #60 tablet 11/01/19 Unknown Rx Thiamine [Vitamin B-1] 100 mg PO QDAY #30 tablet 11/01/19 Unknown Rx nadoloL [Corgard] 20 mg PO QDAY #30 tablet 11/01/19 Unknown Rx ED Physical Exam - General Limitations: No Limitations General appearance: alert, in no apparent distress - Head Head exam: Present: atraumatic, normocephalic - Eye Eye exam: Present: normal appearance - ENT ENT exam: Present: mucous membranes dry - Neck Neck exam: Present: normal inspection - Respiratory Respiratory exam: Present: normal lung sounds bilaterally, chest wall tenderness. Absent: respiratory distress, wheezes, rales - Cardiovascular Cardiovascular Exam: Present: regular rate, normal rhythm. Absent: systolic murmur, diastolic murmur, rubs, gallop - GI/Abdominal GI/Abdominal exam: Present: soft, tenderness (Epigastric tenderness), normal bowel sounds - Rectal Rectal exam: Present: heme (+) stool, black stool, hemorrhoids - Extremities Exam Extremities exam: Present: normal inspection - Back Exam Back exam: Present: normal inspection - Neurological Exam Neurological exam: Present: alert, oriented X3 - Psychiatric Psychiatric exam: Present: normal affect, normal mood - Skin Skin exam: Present: warm, dry, intact, normal color. Absent: rash ED Course Vital Signs 03/21/20 03/21/20 03/21/20 21:28 21:42 23:38 Temperature 98.3 F 98.3 F Pulse Rate 125 H 88 Respiratory 18 18 18 Rate Blood Pressure 143/94 112/73 O2 Sat by Pulse 100 99 99 Oximetry 03/22/20 03/22/20 03/22/20 00:25 00:30 00:40 Temperature Pulse Rate 108 H 106 H 110 H Respiratory 17 20 24 Rate Blood Pressure 122/89 122/89 O2 Sat by Pulse Oximetry 03/22/20 03/22/20 03/22/20 00:50 01:00 01:10 Temperature Pulse Rate 105 H 101 H 108 H Respiratory 27 H 22 20 Rate Blood Pressure 150/100 146/91 146/91 O2 Sat by Pulse Oximetry - Reevaluation(s) Reevaluation #1: Patient is complaining of being shaky. Patient will be given 1 mg Ativan. Patient was tachycardic. Patient will be placed on a monitor technician. Patient will be given a banana bag and fluids. I discussed all results with patient. I discussed plan of care with patient. Patient agrees with plan of care and admission. Patient to be admitted to the hospitalist service. 03/21/20 23:49 - Consultations Consultation #1: I discussed case with Dr. Rooney, gastroenterology. Dr. Rooney recommends admission to the hospitalist group, n.p.o. after midnight. 03/21/20 23:40 Consultation #2: Hospitalist consulted for admission. Hospitalist to admit patient. 03/21/20 23:49 ANTONI score - Antoni Score Age > 65: (0) No Aspirin use within the Past 7 Days: (0) No 3 or more CAD Risk Factors: (0) No 2 or more Angina events in past 24 hrs: (0) No Known CAD with more than 50% Stenosis: (0) No Elevated Cardiac Markers: (0) No ST Deviation Greater than 0.5mm: (0) No ANTONI Score: 0 ED Medical Decision Making - Lab Data Result diagrams: 03/21/20 21:31 03/21/20 21:31 - EKG Data -: EKG Interpreted by Me EKG shows normal: sinus rhythm, axis, intervals, QRS complexes, ST-T waves Rate: normal - EKG Data Interpretation: LV[facility] - Radiology Data Radiology results: report reviewed, image reviewed interpreted by me: Chest x-ray: No pneumonia, no pneumothorax, no foreign body, no osseous find ings, no acute findings. CHEST 1 VIEW INDICATION / CLINICAL INFORMATION: Chest Pain. COMPARISON: 10/29/2019 FINDINGS: SUPPORT DEVICES: None. HEART / MEDIASTINUM: No significant abnormality. LUNGS / PLEURA: No significant pulmonary or pleural abnormality. No pneumothorax. ADDITIONAL FINDINGS: No significant additional findings. IMPRESSION: 1. No acute findings. - Differential Diagnosis Chest pain, melena, GI bleed, alcoholic gastritis, nausea, vomiting Critical Care Time: Yes Critical care time in (mins) excluding proc time.: 35 Critical care attestation.: If time is entered above; I have spent that time in minutes in the direct care of this critically ill patient, excluding procedure time. Critical Care Time: 35 minutes ED Disposition Clinical Impression: Melena, Epigastric abdominal pain, Hyperkalemia, Abnormal LFTs (liver function tests) Anemia Qualifiers: Anemia type: unspecified type Qualified Code(s): D64.9 - Anemia, unspecified EtOH dependence Qualifiers: Substance use status: uncomplicated Qualified Code(s): F10.20 - Alcohol d ependence, uncomplicated GI bleed Qualifiers: GI bleed type/associated pathology: melena Qualified Code(s): K92.1 - Melena Gastritis Qualifiers: Gastritis type: alcoholic Chronicity: acute Gastritis bleeding: with bleeding Qualified Code(s): K29.21 - Alcoholic gastritis with bleeding Chest pain Qualifiers: Chest pain type: unspecified Qualified Code(s): R07.9 - Chest pain, unspecified Disposition: DC-09 OP ADMIT IP TO THIS HOSP Is pt being admited?: Yes Does the pt Need Aspirin: No Condition: Critical Time of Disposition: 23:49
[2020-03-21] MEDS ORDERED: PANTOPRAZOLE 40 MG INJ IV ONE (23:41)
[2020-03-21] MEDS ORDERED: LORazepam 2 MG/ML VIAL IV PRN ×3 (23:50)
[2020-03-21] MEDS ORDERED: SODIUM CHLORIDE 0.9% 1000 ML 1,000 ML IV ONE (23:55)
[2020-03-21] MEDS ORDERED: THIAMINE 100 MG, FOLIC ACID 1 MG, MULTIPLE VITAMIN INJ, ADULT 10 ML in SODIUM CHLORIDE ... IV ONE (23:55)
[2020-03-21] MEDS ORDERED: LORazepam 2 MG/ML VIAL IV ONE (23:55)
[2020-03-22 00:23] LABS: Albumin 3.8 g/dL (3.9-5); Bilirubin,Direct 0.5 mg/dL (0-0.2)
[2020-03-22] MEDS ORDERED: MORPHINE 2 MG/1 ML INJ IV PRN (03:33)
[2020-03-22] MEDS ORDERED: ACETAMINOPHEN 650 MG RECT SUPP PR PRN (03:34)
[2020-03-22] MEDS ORDERED: ONDANSETRON 4 MG/2 ML INJ IV PRN (03:34)
[2020-03-22] MEDS ORDERED: SODIUM CHLORIDE 0.9% 1000 ML 1,000 ML IV SCH (03:45)
--- NOTE | 2020-03-22 05:50 | History and Physical Report ---
History of Present Illness Date of examination: 03/21/20 Date of admission: 03/21/20 23:51 Chief complaint: CHEST PAIN AND HEMATEMESIS History of present illness: 49 year old male presenting with burning chest pain going on for few days and located in the retrosternal area and patient also complained about hematemesis and melena but no hematochezia. There is no history of fever, chills ,shortness of breath or dizziness. Patient admits to daily alcohol abuse. Past History Past Medical History: hypertension Past Surgical History: No surgical history Social history: alcohol abuse Family history: no significant family history Medications and Allergies Allergies Allergy/AdvReac Type Severity Reaction Status Date / Time No Known Allergies Allergy Unverified 05/30/13 18:21 Home Medications Medication Instructions Recorded Confirmed Last Taken Type Folic Acid [Folvite] 1 mg PO DAILY #30 tablet 11/01/19 Unknown Rx Multivitamin Tab W-MINERAL 1 each PO QDAY #30 tablet 11/01/19 Unknown Rx [Multiple Vitamin/Mineral (Theragran M)] Pantoprazole [Protonix TAB] 40 mg PO BID #60 tablet 11/01/19 Unknown Rx Thiamine [Vitamin B-1] 100 mg PO QDAY #30 tablet 11/01/19 Unknown Rx nadoloL [Corgard] 20 mg PO QDAY #30 tablet 11/01/19 Unknown Rx Active Meds: Active Medications Acetaminophen (Tylenol) 650 mg OK Q4H PRN PRN Reason: Headache Sodium Chloride (Nacl 0.9% 1000 Ml) 1,000 mls @ 125 mls/hr IV DIRECT SCOTT Lorazepam (Ativan) 2 mg IV Q1HR PRN PRN Reason: CIWA-Ar 8-15 Lorazepam (Ativan) 4 mg IV Q1HR PRN PRN Reason: CIWA-Ar 16-25 Lorazepam (Ativan) 4 mg IV Q15MIN PRN PRN Reason: CIWA-Ar >25 Morphine Sulfate (Morphine) 2 mg IV Q3H PRN PRN Reason: Pain, Moderate (4-6) Nitroglycerin (Nitro-Bid 2%) 0.5 inch TP QIDNTG SCOTT; Protocol Ondansetron HCl (Zofran) 4 mg IV Q8H PRN PRN Reason: Nausea And Vomiting Pantoprazole Sodium (Protonix) 40 mg IV BID [facility] Review of Systems Constitutional: weakness, no weight loss, no weight gain, no fever, no chills, no sweats, no night sweats, no anorexia, no fatigue, no malaise Eyes: bilateral: other (NO BILATERAL EYE SYMPTOMS) Ears, nose, mouth and throat: no ear pain, no ear discharge, no decreased hearing, no nose pain, no nasal congestion, no nasal discharge, no sinus pressure, no headache Cardiovascular: chest pain, no orthopnea, no palpitations, no rapid/irregular heart beat, no edema, no syncope, no lightheadedness, no shortness of breath, no high blood pressure Respiratory: no cough, no shortness of breath Gastrointestinal: abdominal pain, nausea, vomiting, hematemesis, melena, heartburn, no diarrhea, no constipation, no coffee ground emesis, no hematochezia, no loss of appetite, no early satiety Genitourinary Male: no dysuria, no hematuria, no flank pain, no discharge, no urinary frequency, no urinary hesitancy, no nocturia Rectal: no pain, no itching Musculoskeletal: no neck stiffness, no neck pain, no low back pain Integumentary: no rash, no pruritis, no redness, no sores, no wounds, no jaundice, no boils, no bullae, no lesions, no darkening of skin, no acne Neurological: weakness, no paralysis, no parathesias, no numbness, no tingling, no seizures, no syncope, no headaches Psychiatric: no anxiety, no confusion Endocrine: no cold intolerance, no polydipsia, no polyuria, no nocturia, no excessive sweating, no flushing, no palpatations Allergic/Immunologic: no persistent infections Exam - Constitutional Vitals: Temp Pulse Resp BP Pulse Ox 98.5 F 106 H 18 136/92 98 03/22/20 04:26 03/22/20 04:26 03/22/20 04:26 03/22/20 04:26 03/22/20 04:26 General appearance: Present: no acute distress - EENT Eyes: Present: PERRL, EOM intact ENT: hearing intact, clear oral mucosa, dentition normal - Neck Neck: Present: supple, normal ROM. Absent: carotid bruits - Respiratory Respiratory effort: normal - Cardiovascular Rhythm: regular Heart Sounds: Present: S1 & S2. Absent: gallop, click - Extremities Extremities: no ischemia, No edema Peripheral Pulses: within normal limits - Abdominal General gastrointestinal: Present: soft, non-tender, non-distended. Absent: tender, distended, rigid, mass Male genitourinary: Present: deferred - Rectal Rectal Exam: deferred - Integumentary Integumentary: Present: clear, warm, dry - Musculoskeletal Musculoskeletal: strength equal bilaterally HEART Score - HEART Score EKG: Normal Age: 45-65 Risk factors: 1-2 risk factors Troponin: Troponin T < 0.010 ng/mL (0.00-0.029) 03/22/20 00:28 Troponin: < normal limit - Critical Actions Critical Actions: 0-3 pts:0.9-1.7%risk of adverse cardiac event.Candidate for discharge Results - Labs CBC & Chem 7: 03/21/20 21:31 03/21/20 21:31 Labs: Laboratory Last Values WBC 7.5 K/mm3 (4.5-11.0) 03/21/20 21:31 RBC 3.61 M/mm3 (3.65-5.03) L 03/21/20 21:31 Hgb 9.2 gm/dl (11.8-15.2) L 03/21/20 21:31 Hct 29.0 % (35.5-45.6) L 03/21/20 21:31 MCV 80 fl (84-94) L 03/21/20 21:31 MCH 25 pg (28-32) L 03/21/20 21:31 MCHC 32 % (32-34) 03/21/20 21:31 RDW 22.4 % (13.2-15.2) H 03/21/20 21:31 Plt Count 151 K/mm3 (140-440) 03/21/20 21:31 Lymph % (Auto) 16.5 % (13.4-35.0) 03/21/20 21:31 Otero % (Auto) 12.1 % (0.0-7.3) H 03/21/20 21:31 Eos % (Auto) 0.1 % (0.0-4.3) 03/21/20 21: Baso % (Auto) 1.3 % (0.0-1.8) 03/21/20 21: Lymph # 1.2 K/mm3 (1.2-5.4) 03/21/20 21:31 Otero # 0.9 K/mm3 (0.0-0.8) H 03/21/20 21:31 Eos # 0.0 K/mm3 (0.0-0.4) 03/21/20 21:31 Baso # 0.1 K/mm3 (0.0-0.1) 03/21/20 21:31 Seg Neutrophils % 70.0 % (40.0-70.0) 03/21/20 21:31 Seg Neutrophils # 5.3 K/mm3 (1.8-7.7) 03/21/20 21:31 Sodium 135 mmol/L (137-145) L 03/21/20 21:31 Potassium 4.7 mmol/L (3.6-5.0) 03/21/20 21:31 Chloride 94.6 mmol/L (98-107) L 03/21/20 21:31 Carbon Dioxide 25 mmol/L (22-30) 03/21/20 21:31 Anion Gap 20 mmol/L 03/21/20 21:31 BUN 18 mg/dL (9-20) 03/21/20 21:31 Creatinine 0.6 mg/dL (0.8-1.3) L 03/21/20 21:31 Estimated GFR > 60 ml/min 03/21/20 21:31 BUN/Creatinine Ratio 30 % 03/21/20 21:31 Glucose 280 mg/dL (75-100) H 03/21/20 21:31 Calcium 8.6 mg/dL (8.4-10.2) 03/21/20 21:31 Total Bilirubin 1.00 mg/dL (0.1-1.2) 03/21/20 21:31 Direct Bilirubin 0.5 mg/dL (0-0.2) H 03/21/20 21:31 Indirect Bilirubin 0.5 mg/dL 03/21/20 21:31 AST 61 units/L (5-40) H 03/21/20 21:31 ALT 60 units/L (7-56) H 03/21/20 21:31 Alkaline Phosphatase 159 units/L (35-129) H 03/21/20 21:31 Troponin T < 0.010 ng/mL (0.00-0.029) 03/22/20 00:28 Total Protein 8.0 g/dL (6.3-8.2) 03/21/20 21:31 Albumin 3.8 g/dL (3.9-5) L 03/21/20 21:31 Albumin/Globulin Ratio 0.9 % 03/21/20 21:31 Lipase 23 units/L (13-60) 03/21/20 21:31 Lerma/IV: Voiding Method Urinal IV Catheter Type [Left INT / Saline Lock Antecubital] Assessment and Plan - Patient Problems (1) Chest pain Current Visit: Yes Status: Acute Qualifiers: Chest pain type: unspecified Qualified Code(s): R07.9 - Chest pain, unspecified Plan to address problem: 1.NPO 2. SERIAL CARDIAC ENZYMES 3. NITROPASTE 4. I.V MORP[ZACHARY FOR PAIN 5 .I.V ZOFRAN FORNAUSEA AND VOMITING 6, TYLENOL FOR HEADACHE (2) GI bleed Current Visit: Yes Status: Acute Qualifiers: GI bleed type/associated pathology: melena Qualified Code(s): K92.1 - Melena Plan to address problem: 1. NPO 2. G.I CONSULT 3. I.V PROTONIX 4. I.V N/SALINE 5. SERIAL HEMOGLOBIN & HEMATOCIT 6 I.V NORMAL SALINE 7. TYPE AND SCREEN
[2020-03-22] MEDS: NITROGLYCERIN 2% OINT 1 GM TP SCH ×4 (05:51→19:35)
[2020-03-22] MEDS: PANTOPRAZOLE 40 MG INJ IV SCH ×2 (09:27→21:36)
--- NOTE | 2020-03-22 10:28 | Gastroenterology Consultation ---
History of Present Illness - Reason for Consult Consult date: 03/22/20 Hematemesis, Varices Requesting physician: CANDICE REDMAN III - History of Present Illness The patient is a 49 yo male with EtOH abuse well-known to our group. His last admit was October, with EV bleeding, and he underwent banding (has also been banded at least twice before). He continues to have binge EtOH, active this week, and comes to the ER for at least 3 days of hematemesis at home (none in the ER). He says his stools are dark. He denies NSAIDs, but is also not compliant with Rx meds. He has no abdominal pain, fevers, SOB, or chest pain. There has been no melena overnight, and his hgb is near his baseline (10). Past History Past Medical History: hypertension, liver disease (EtOH abuse with acute alcoholic hepatitis) Past Surgical History: No surgical history Social history: lives with family, smoking, alcohol abuse Family history: no significant family history Medications and Allergies Allergies Allergy/AdvReac Type Severity Reaction Status Date / Time No Known Allergies Allergy Unverified 05/30/13 18:21 Home Medications Medication Instructions Recorded Confirmed Last Taken Type Folic Acid [Folvite] 1 mg PO DAILY #30 tablet 11/01/19 Unknown Rx Multivitamin Tab W-MINERAL 1 each PO QDAY #30 tablet 11/01/19 Unknown Rx [Multiple Vitamin/Mineral (Theragran M)] Pantoprazole [Protonix TAB] 40 mg PO BID #60 tablet 11/01/19 Unknown Rx Thiamine [Vitamin B-1] 100 mg PO QDAY #30 tablet 11/01/19 Unknown Rx nadoloL [Corgard] 20 mg PO QDAY #30 tablet 11/01/19 Unknown Rx Active Meds: Active Medications Acetaminophen (Tylenol) 650 mg [place] Q4H PRN PRN Reason: Headache Sodium Chloride (Nacl 0.9% 1000 Ml) 1,000 mls @ 125 mls/hr IV DIRECT SCOTT Last Admin: 03/22/20 09:31 Dose: 125 mls/hr Documented by: Lorazepam (Ativan) 2 mg IV Q1HR PRN PRN Reason: CIWA-Ar 8-15 Lorazepam (Ativan) 4 mg IV Q1HR PRN PRN Reason: CIWA-Ar 16-25 Lorazepam (Ativan) 4 mg IV Q15MIN PRN PRN Reason: CIWA-Ar >25 Morphine Sulfate (Morphine) 2 mg IV Q3H PRN PRN Reason: Pain, Moderate (4-6) Nitroglycerin (Nitro-Bid 2%) 0.5 inch TP QIDNTG [facility]; Protocol Last Admin: 03/22/20 09:27 Dose: 0.5 inch Documented by: Ondansetron HCl (Zofran) 4 mg IV Q8H PRN PRN Reason: Nausea And Vomiting Pantoprazole Sodium (Protonix) 40 mg IV BID [facility] Last Admin: 03/22/20 09:27 Dose: 40 mg Documented by: I HAVE REVIEWED/RECONCILED MEDICATIONS Review of Systems - Review of Systems All systems: negative (as noted in the HPI) Exam - Constitutional Vital Signs: Temp Pulse Resp BP Pulse Ox 98.7 F 108 H 18 117/89 99 03/22/20 08:14 03/22/20 09:27 03/22/20 04:26 03/22/20 09:27 03/22/20 08:14 General appearance: no acute distress - EENT Eyes: PERRL, EOM intact ENT: hearing intact, clear oral mucosa, dentition normal - Neck Neck: supple, normal ROM - Respiratory Respiratory effort: normal Respiratory: bilateral: CTA - Cardiovascular Rhythm: regular Heart Sounds: Present: S1 & S2 Extremities: no ischemia, No edema - Gastrointestinal General gastrointestinal: Present: soft, non-tender, non-distended - Integumentary Integumentary: Present: clear, warm, dry - Neurologic Neurological: alert and oriented x3, other (No asterixis) - Labs CBC & Chem 7: 03/21/20 21:31 03/21/20 21:31 Lab Results: Laboratory Results - last 24 hr 03/21/20 03/21/20 03/21/20 21:31 21:31 21:31 WBC 7.5 RBC 3.61 L Hgb 9.2 L Hct 29.0 L MCV 80 L MCH 25 L MCHC 32 RDW 22.4 H Plt Count 151 Lymph % (Auto) 16.5 [place] % (Auto) 12.1 H Eos % (Auto) 0.1 Baso % (Auto) 1.3 Lymph # 1.2 [place] # 0.9 H Eos # 0.0 Baso # 0.1 Seg Neutrophils % 70.0 Seg Neutrophils # 5.3 Sodium 135 L Potassium 4.7 Chloride 94.6 L Carbon Dioxide 25 Anion Gap 20 BUN 18 Creatinine 0.6 L Estimated GFR > 60 BUN/Creatinine Ratio 30 Glucose 280 H Calcium 8.6 Total Bilirubin Direct Bilirubin Indirect Bilirubin AST ALT Alkaline Phosphatase Troponin T < 0.010 Total Protein Albumin Albumin/Globulin Ratio Lipase 23 03/21/20 03/22/20 03/22/20 21:31 00:28 04:47 WBC RBC Hgb Hct MCV MCH MCHC RDW Plt Count Lymph % (Auto) [place] % (Auto) Eos % (Auto) Baso % (Auto) Lymph # [place] # Eos # Baso # Seg Neutrophils % Seg Neutrophils # Sodium Potassium Chloride Carbon Dioxide Anion Gap BUN Creatinine Estimated GFR BUN/Creatinine Ratio Glucose Calcium Total Bilirubin 1.00 Direct Bilirubin 0.5 H Indirect Bilirubin 0.5 AST 61 H ALT 60 H Alkaline Phosphatase 159 H Troponin T < 0.010 < 0.010 Total Protein 8.0 Albumin 3.8 L Albumin/Globulin Ratio 0.9 Lipase Assessment and Plan - Patient Problems (1) Alcoholic cirrhosis of liver Current Visit: No Status: Acute Plan to address problem: - Noncompliant with meds/recommendations, but will re-enforce abstinence, MVI, PPI therapy, etc. - Given severe recidivism, not a candidate for TIPS or liver transplant eval at present. (2) Esophageal varices with bleeding Current Visit: No Status: Acute Qualifiers: Esophageal varices type: secondary Qualified Code(s): I85.11 - Secondary esophageal varices with bleeding Plan to address problem: - EGD today given significant varices. - Continue IV PPI and NPO status. - Avoid all NSAIDs and chemical DVT PPY.
[2020-03-22] MEDS ORDERED: SODIUM CHLORIDE 0.9% 1000 ML 0 ML ONE (11:30)
[2020-03-22] MEDS ORDERED: SODIUM CHLORIDE 0.9% 1000 ML 1,000 ML ONE (11:32)
[2020-03-22 11:34] LABS: BUN/Creatinine Ratio 19; Blood Urea Nitrogen 13 mg/dL (9-20); Calcium 8.5 mg/dL (8.4-10.2); Hemolysis Index 4
[2020-03-22 11:36] LABS: Hematocrit 27.6 % (35.5-45.6); Hemoglobin 8.4 gm/dl (11.8-15.2); Mean Corpuscular HGB Conc 31 % (32-34); Mean Corpuscular Volume 82 fl (84-94); Platelet Count 148 K/mm3 (140-440); Red Blood Count 3.38 M/mm3 (3.65-5.03)
[2020-03-22 11:39] LABS: Red Cell Distribution Width 23.3 % (13.2-15.2)
--- NOTE | 2020-03-22 12:02 | Anesthesia Consultation ---
Anesthesia Consult and Med Hx Date of service: 03/22/20 - Airway Anesthetic Teeth Evaluation: Good ROM Head & Neck: Adequate Mental/Hyoid Distance: Adequate Mallampati Class: Class II Intubation Access Assessment: Probably Good - Pulmonary Exam CTA: Yes - Pre-Operative Health Status ASA Pre-Surgery Classification: ASA2 Proposed Anesthetic Plan: MAC - Pulmonary Hx Smoking: Yes (Quit 2017) Hx Asthma: No COPD: No Hx Pneumonia: No Hx Sleep Apnea: No - Cardiovascular System Hx Hypertension: Yes Hx Heart Attack/AMI: No - Central Nervous System Hx Neuromuscular Disorder: No Hx Seizures: No Hx Psychiatric Problems: No - Gastrointestinal Hx Ulcer: Yes (GI bleed) Hx Gastroesophageal Reflux Disease: Yes (In the past) - Endocrine Hx End Stage Renal Disease: No Hx Cirrhosis: Yes (Esophageal varices) Hx Liver Disease: Yes (Heavy ETOh abuse) - Hematic Hx Anemia: Yes Hx Sickle Cell Disease: No - Other Systems Hx Alcohol Use: Yes (HEAVY, drinks 6-pack of beer/daily) Hx Cancer: No Hx Obesity: Yes (Over weight) - Additional Comments Anesthesia Medical History Comments: Denies previous anesthesia complication. Has Hx. of Alcoholic Hepatitis and esophageal varices banding.
--- NOTE | 2020-03-22 12:03 | Anesthesia Day of Surgery ---
Anesthesia Day of Surgery - Day of Surgery Patient Examined: Yes Patient H&P Reviewed: Yes Patient is NPO: Yes Beta Blockers: No Cardiac Clearance: No Pulmonary Clearance: No
[2020-03-22] MEDS ORDERED: ONDANSETRON 4 MG/2 ML INJ ONE (12:07)
[2020-03-22] MEDS ORDERED: fentaNYL 100 MCG/2 ML INJ ONE (12:08)
[2020-03-22] MEDS ORDERED: propofoL 200 MG/20 ML VIAL IV ONE ×2 (12:09)
--- NOTE | 2020-03-22 12:26 | Post Operative Note ---
Pre-op diagnosis: EV Bleeding Post-op diagnosis: same Findings: 1. Normal duodenum 2. Moderate portal gastropathy 3. No gastric varices 4. 2 columns of Grade III EV from GE jxn to mid esophagus - Band x 2 5. Scarring present from prior banding 6. No blood present in upper GI tract Procedure: EGD with esophageal varix banding for bleeding control Anesthesia: MAC Surgeon: DILMA PATTERSON Estimated blood loss: minimal Pathology: none Specimen disposition: other (N/A) Condition: stable Disposition: floor (Recs: 1. Protonix and MVI therapy. 2. Beta rohini when clinically improved. 3. Clears today; advance tomorrow if no N/V. 4. D/C narcotics, but continue CIWA protocol.)
--- NOTE | 2020-03-22 12:42 | Operative Report ---
ENDOSCOPY DOCUMENT PROCEDURE PERFORMED: Esophagogastroduodenoscopy with esophageal variceal band ligation for bleeding control. PREOPERATIVE DIAGNOSIS: Esophageal variceal bleeding. POSTOPERATIVE DIAGNOSES: Esophageal variceal bleeding. ENDOSCOPIST: Zane Rooney MD INSTRUMENT: Olympus video endoscope. MEDICATIONS: MAC anesthesia by [facility]. COMPLICATIONS: No apparent complications. ESTIMATED BLOOD LOSS: Minimal. SPECIMENS: None. IMPLANTS: Esophageal band ligation x 2. ASSISTANTS: None. CONDITION AT COMPLETION: Stable. TECHNIQUE: The patient was informed of the risks and benefits of the procedure. He signed the informed consent to proceed. He was placed in the left lateral decubitus position and the above sedative medications were given. His vital signs remained stable throughout the procedure. The instrument was advanced from the mouth to the second portion of the duodenum under direct visualization. At that point, the bowel was insufflated and the endoscope was slowly withdrawn. FINDINGS: 1. No blood present in the upper GI tract at the start of the procedure. 2. Normal duodenum. 3. Moderate portal hypertensive gastropathy. 4. No evidence of gastric varices. 5. Two columns of grade 3 esophageal varices extending from the GE junction to the midesophagus a. Banding was applied to both columns at the GE junction. 6. Significant scarring present at the GE junction from prior banding episodes. RECOMMENDATIONS: 1. Protonix and multivitamin therapy. 2. Proton beta rohini when clinically improved. 3. Clear liquid diet today; advance tomorrow to regular diet if no nausea and vomiting. 4. Discontinue narcotics, but continue CIWA protocol as this will help with nausea and vomiting. JOB# [id number] KYLEIGH/NTS
[2020-03-22] MEDS ORDERED: LIDOCAINE MPF (2%) 20 MG/1 ML VIAL 5 ML ONE (13:10)
[2020-03-22] MEDS: MULTIVITAMINS ,THERAPEUTIC TAB PO SCH (14:52)
--- NOTE | 2020-03-22 14:54 | Progress Note ---
Subjective Date of service: 03/22/20 Interval history: CONSULT DICTATED Objective Vital Signs Temp Pulse Resp BP Pulse Ox 03/22/20 12:52 96 H 15 125/82 98 03/22/20 12:37 101 H 15 130/85 100 03/22/20 12:22 98.2 F 107 H 20 105/54 100 03/22/20 11:22 98.6 F 102 H 15 145/89 99 03/22/20 09:27 108 H 117/89 03/22/20 08:14 98.7 F 109 H 117/89 99 03/22/20 05:51 106 H 136/92 03/22/20 04:37 101 H 03/22/20 04:26 98.5 F 106 H 18 136/92 98 03/22/20 01:10 108 H 20 146/91 03/22/20 01:00 101 H 22 146/91 03/22/20 00:50 105 H 27 H 150/100 03/22/20 00:40 110 H 24 122/89 03/22/20 00:30 106 H 20 122/89 03/22/20 00:25 108 H 17 03/21/20 23:38 18 99 03/21/20 21:42 98.3 F 88 18 112/73 99 03/21/20 21:28 98.3 F 125 H 18 143/94 100 - Labs and Meds Cardiac Enzymes 03/21/20 Range/Units 21:31 AST 61 H (5-40) units/L CBC 03/21/20 03/22/20 Range/Units 21:31 10:55 WBC 7.5 5.7 (4.5-11.0) K/mm3 RBC 3.61 L 3.38 L (3.65-5.03) M/mm3 Hgb 9.2 L 8.4 L (11.8-15.2) gm/dl Hct 29.0 L 27.6 L (35.5-45.6) % Plt Count 151 148 (140-440) K/mm3 Lymph # 1.2 (1.2-5.4) K/mm3 [place] # 0.9 H (0.0-0.8) K/mm3 Eos # 0.0 (0.0-0.4) K/mm3 Baso # 0.1 (0.0-0.1) K/mm3 Comprehensive Metabolic Panel 03/21/20 03/21/20 03/22/20 Range/Units 21:31 21:31 10:55 Sodium 135 L 138 (137-145) mmol/L Potassium 4.7 4.2 (3.6-5.0) mmol/L Chloride 94.6 L 102.7 (98-107) mmol/L Carbon Dioxide 25 23 (22-30) mmol/L BUN 18 13 (9-20) mg/dL Creatinine 0.6 L 0.7 L (0.8-1.3) mg/dL Glucose 280 H 166 H (75-100) mg/dL Calcium 8.6 8.5 (8.4-10.2) mg/dL Direct Bilirubin 0.5 H (0-0.2) mg/dL Indirect Bilirubin 0.5 mg/dL AST 61 H (5-40) units/L ALT 60 H (7-56) units/L Alkaline Phosphatase 159 H (35-129) units/L Total Protein 8.0 (6.3-8.2) g/dL Albumin 3.8 L (3.9-5) g/dL
--- NOTE | 2020-03-22 15:16 | Consultation ---
HISTORY OF PRESENT ILLNESS: The patient is a 49-year-old male who has a history of alcoholism, liver disease, and upper GI bleeding. He describes nausea, vomiting, and burning that involves the epigastrium and substernal regions on admission. He has had hypertension. He does not see a doctor regularly. He did not describe any diabetes, hyperlipidemia, smoking, or history of heart disease. He does not have any chest discomfort related to activities. There has been no angina, shortness of breath, palpitations, dizziness, claudication, or edema. PAST MEDICAL HISTORY: Operations: None. Smoking: None. FAMILY HISTORY: Unremarkable. SOCIAL HISTORY: Alcohol use multiple per day for many years. ALLERGIES: None. MEDICATIONS: See the nurse's list. REVIEW OF SYSTEMS: No other complaints or medical problems described. He is well known to the GI group and he has had esophageal varicose vein banding in the past. He was last hospitalized about 2 months ago. He has had some melena. He has not had any infectious symptoms. He has his own business. He does have cirrhosis. PHYSICAL EXAMINATION: GENERAL: Well-developed, well-nourished, no acute distress. Alert, oriented, cooperative. Mental status normal. EYES, NOSE, AND THROAT: Unremarkable. NECK: Reveals no JVD or bruits. Neck is supple, no masses. LUNGS: Clear. No labored respirations. HEART: Regular rhythm. No rubs, murmurs, gallops. ABDOMEN: Soft, nontender, no masses. EXTREMITIES: No cyanosis, clubbing, edema. Peripheral pulses are intact. NEUROLOGIC: Symmetrical. SKIN: Clear. LABORATORY DATA: EKG: A 12-lead is pending. Rhythm strips are unremarkable. IMPRESSION: 1. Substernal chest pain with nausea and vomiting: Probably secondary to a GI etiology. A stress test can be considered when he recovers from the GI bleed. Troponins are normal. 2. Upper gastrointestinal bleed with anemia from esophageal varices. 3. Alcoholic liver disease including an element of hepatitis and cirrhosis. 4. History of hypertension. PLAN: Thank you for this consultation. We will follow the patient. JOB# [id number] JDS/NTS
--- NOTE | 2020-03-22 18:05 | Progress Note ---
Assessment and Plan Assessment and plan: --Upper GI bleeding; In the setting of cirrhosis liver with history of recurrent variceal bleeding Hematemesis probably secondary to variceal bleeding GI evaluated the patient, s/p EGD: With esophageal variceal banding for bleeding control Findings 2 columns of Grade III EV from GE jxn to mid esophagus s/p Band x 2 Normal duodenum Moderate portal gastropathy No gastric varices Scarring present from prior banding No blood present in upper GI tract GI Recs: 1. Protonix and MVI therapy. 2. Beta rohini when clinically improved. 3. Clears today; advance tomorrow if no N/V. 4. D/C narcotics, but continue CILA protocol.) --Atypical chest pain; Probably GI symptoms related Evaluated by cardiology, continue current management Possible stress test once GI issues are stabilized --History of alcoholic cirrhosis liver; Resume home medications, supportive care --History of chronic alcohol use; --Closely monitor for alcohol withdrawal symptoms; Continue CILA protocol --DVT prophylaxis; SCDs No pharmacologic anticoagulation in view of variceal bleeding Closely monitor the patient and adjust management as needed Possible discharge in 1 to 2 days if stable Plan of care reviewed with the patient and his nurse Consults and recommendations noted and appreciated History Interval history: I have seen and examined the patient at the bedside Patient's chart and medications reviewed Patient was admitted with hematemesis possible variceal bleeding Evaluated by GI, patient underwent EGD Patient feels slightly better Vital signs reviewed Hospitalist Physical - Constitutional Vitals: Temp Pulse Resp BP Pulse Ox 98.2 F 101 H 15 127/87 98 03/22/20 12:22 03/22/20 14:52 03/22/20 12:52 03/22/20 14:52 03/22/20 12:52 General appearance: Present: mild distress, well-nourished, obese - EENT Eyes: Present: PERRL, EOM intact - Neck Neck: Present: supple, normal ROM - Respiratory Respiratory effort: normal Respiratory: bilateral: diminished, negative: rales, rhonchi, wheezing - Cardiovascular Rhythm: regular Heart Sounds: Present: S1 & S2 - Extremities Extremities: no ischemia, No edema - Abdominal General gastrointestinal: soft, non-tender, non-distended, normal bowel sounds - Integumentary Integumentary: Present: clear, warm - Psychiatric Psychiatric: appropriate mood/affect, cooperative - Neurologic Neurologic: CNII-XII intact, moves all extremities HEART Score - HEART Score EKG: Normal Age: 45-65 Risk factors: 1-2 risk factors Troponin: Troponin T < 0.010 ng/mL (0.00-0.029) 03/22/20 04:47 Troponin: < normal limit - Critical Actions Critical Actions: 0-3 pts:0.9-1.7%risk of adverse cardiac event.Candidate for discharge Results - Labs CBC & Chem 7: 03/22/20 10:55 03/22/20 10:55 Labs: Laboratory Last Values WBC 5.7 K/mm3 (4.5-11.0) 03/22/20 10:55 RBC 3.38 M/mm3 (3.65-5.03) L 03/22/20 10:55 Hgb 8.4 gm/dl (11.8-15.2) L 03/22/20 10:55 Hct 27.6 % (35.5-45.6) L 03/22/20 10:55 MCV 82 fl (84-94) L 03/22/20 10:55 MCH 25 pg (28-32) L 03/22/20 10:55 MCHC 31 % (32-34) L 03/22/20 10:55 RDW 23.3 % (13.2-15.2) H 03/22/20 10:55 Plt Count 148 K/mm3 (140-440) 03/22/20 10:55 Lymph % (Auto) 16.5 % (13.4-35.0) 03/21/20 21:31 [place] % (Auto) 12.1 % (0.0-7.3) H 03/21/20 21:31 Eos % (Auto) 0.1 % (0.0-4.3) 03/21/20 21:31 Baso % (Auto) 1.3 % (0.0-1.8) 03/21/20 21: Lymph # 1.2 K/mm3 (1.2-5.4) 03/21/20 21: [place] # 0.9 K/mm3 (0.0-0.8) H 03/21/20 21: Eos # 0.0 K/mm3 (0.0-0.4) 03/21/20 21:31 Baso # 0.1 K/mm3 (0.0-0.1) 03/21/20 21:31 Seg Neutrophils % 70.0 % (40.0-70.0) 03/21/20 21:31 Seg Neutrophils # 5.3 K/mm3 (1.8-7.7) 03/21/20 21:31 Sodium 138 mmol/L (137-145) 03/22/20 10:55 Potassium 4.2 mmol/L (3.6-5.0) 03/22/20 10:55 Chloride 102.7 mmol/L (98-107) 03/22/20 10:55 Carbon Dioxide 23 mmol/L (22-30) 03/22/20 10:55 Anion Gap 17 mmol/L 03/22/20 10:55 BUN 13 mg/dL (9-20) 03/22/20 10:55 Creatinine 0.7 mg/dL (0.8-1.3) L 03/22/20 10:55 Estimated GFR > 60 ml/min 03/22/20 10:55 BUN/Creatinine Ratio 19 % 03/22/20 10:55 Glucose 166 mg/dL (75-100) H 03/22/20 10:55 Calcium 8.5 mg/dL (8.4-10.2) 03/22/20 10:55 Total Bilirubin 1.00 mg/dL (0.1-1.2) 03/21/20 21:31 Direct Bilirubin 0.5 mg/dL (0-0.2) H 03/21/20 21:31 Indirect Bilirubin 0.5 mg/dL 03/21/20 21:31 AST 61 units/L (5-40) H 03/21/20 21:31 ALT 60 units/L (7-56) H 03/21/20 21:31 Alkaline Phosphatase 159 units/L (35-129) H 03/21/20 21:31 Troponin T < 0.010 ng/mL (0.00-0.029) 03/22/20 04:47 Total Protein 8.0 g/dL (6.3-8.2) 03/21/20 21:31 Albumin 3.8 g/dL (3.9-5) L 03/21/20 21:31 Albumin/Globulin Ratio 0.9 % 03/21/20 21:31 Lipase 23 units/L (13-60) 03/21/20 21:31 Lerma/IV: Voiding Method Toilet IV Catheter Type [Left INT / Saline Lock Antecubital] Active Medications - Current Medications Current Medications: Generic Name Dose Route Start Last Admin Trade Name Freq PRN Reason Stop Dose Admin Acetaminophen 650 mg 03/22/20 03:34 Tylenol OR Q4H PRN Headache Sodium Chloride 1,000 mls @ 125 mls/hr 03/22/20 03:45 03/22/20 09:31 Nacl 0.9% 1000 Ml IV 125 mls/hr DIRECT SCOTT Administration Sodium Chloride 1,000 mls @ 50 mls/hr 03/22/20 11:15 Nacl 0.9% 1000 Ml IV DIRECT SCOTT Lorazepam 2 mg 03/21/20 23:50 Ativan IV Q1HR PRN CIWA-Ar 8-15 Lorazepam 4 mg 03/21/20 23:50 Ativan IV Q1HR PRN CIWA-Ar 16-25 Lorazepam 4 mg 03/21/20 23:50 Ativan IV Q15MIN PRN CIWA-Ar >25 Multivitamins 1 each 03/22/20 13:00 03/22/20 14:52 Theragran Tab PO 1 each QDAY SCOTT Administration Nitroglycerin 0.5 inch 03/22/20 06:00 03/22/20 14:52 Nitro-Bid 2% TP 0.5 inch QIDNTG SCOTT Administration Protocol Ondansetron HCl 4 mg 03/22/20 03:34 Zofran IV Q8H PRN Nausea And Vomiting Pantoprazole Sodium 40 mg 03/22/20 10:00 03/22/20 09:27 Protonix IV 40 mg BID SCOTT Administration
[2020-03-23] MEDS: NITROGLYCERIN 2% OINT 1 GM TP SCH ×3 (05:55→14:57)
[2020-03-23] MEDS: PANTOPRAZOLE 40 MG INJ IV SCH ×2 (09:19→21:41)
[2020-03-23] MEDS: MULTIVITAMINS ,THERAPEUTIC TAB PO SCH (09:19)
[2020-03-23 09:33] LABS: Eosinophils # (Auto) 0.1 K/mm3 (0.0-0.4); Eosinophils % (Auto) 1.7 % (0.0-4.3); Hemoglobin 8.2 gm/dl (11.8-15.2); Lymphocytes # (Auto) 1.3 K/mm3 (1.2-5.4); Mean Corpuscular HGB Conc 32 % (32-34); Mean Corpuscular Volume 81 fl (84-94); Monocytes # (Auto) 0.4 K/mm3 (0.0-0.8); Monocytes % (Auto) 9.6 % (0.0-7.3); Platelet Count 155 K/mm3 (140-440)
[2020-03-23 09:34] LABS: Red Cell Distribution Width 22.3 % (13.2-15.2)
[2020-03-23] MEDS: SODIUM CHLORIDE 0.9% 1000 ML 1,000 ML IV SCH (09:37)
[2020-03-23 09:41] LABS: INR 1.37 (0.87-1.13)
[2020-03-23 09:42] LABS: Partial Thromboplastin Time 31.5 Sec. (24.2-36.6)
[2020-03-23 09:58] LABS: Alanine Aminotransferase 46 units/L (7-56); Albumin 3.2 g/dL (3.9-5); BUN/Creatinine Ratio 10; Blood Urea Nitrogen 7 mg/dL (9-20); Calcium 8.8 mg/dL (8.4-10.2); Hemolysis Index 12
--- NOTE | 2020-03-23 10:44 | Progress Note ---
Assessment and Plan Assessment and plan: --Upper GI bleeding; In the setting of cirrhosis liver with history of recurrent variceal bleeding Hematemesis probably secondary to variceal bleeding GI evaluated the patient, s/p EGD: With esophageal variceal banding for bleeding control Findings 2 columns of Grade III EV from GE jxn to mid esophagus s/p Band x 2 Normal duodenum Moderate portal gastropathy No gastric varices Scarring present from prior banding No blood present in upper GI tract GI Recs: 1. Protonix and MVI therapy. 2. Beta rohini when clinically improved. 3. Clears today; advance tomorrow if no N/V. 4. D/C narcotics, but continue CIND protocol.) --Atypical chest pain; Probably GI symptoms related Evaluated by cardiology, continue current management Possible stress test once GI issues are stabilized --History of alcoholic cirrhosis liver; Resume home medications, supportive care --History of chronic alcohol use; --Closely monitor for alcohol withdrawal symptoms; Continue CIND protocol --DVT prophylaxis; SCDs No pharmacologic anticoagulation in view of variceal bleeding Closely monitor the patient and adjust management as needed Possible discharge in 1 to 2 days if stable Plan of care reviewed with the patient and his nurse Consults and recommendations noted and appreciated History Interval history: I have seen and examined the patient Patient's chart and medications reviewed Patient complains of mild chest pain Cardiology scheduled for stress test tomorrow Vital signs noted Hospitalist Physical - Constitutional Vitals: Temp Pulse Resp BP Pulse Ox 98.5 F 82 20 125/81 99 03/23/20 08:41 03/23/20 09:18 03/23/20 08:41 03/23/20 09:18 03/23/20 08:41 General appearance: Present: no acute distress, well-nourished, obese - EENT Eyes: Present: PERRL, EOM intact - Neck Neck: Present: supple, normal ROM - Respiratory Respiratory effort: normal Respiratory: bilateral: diminished, negative: rales, rhonchi, wheezing - Cardiovascular Rhythm: regular Heart Sounds: Present: S1 & S2 - Extremities Extremities: no ischemia, No edema - Abdominal General gastrointestinal: soft, non-tender, non-distended, normal bowel sounds - Integumentary Integumentary: Present: clear, warm - Psychiatric Psychiatric: appropriate mood/affect, cooperative - Neurologic Neurologic: CNII-XII intact, moves all extremities HEART Score - HEART Score EKG: Normal Age: 45-65 Risk factors: 1-2 risk factors Troponin: Troponin T < 0.010 ng/mL (0.00-0.029) 03/22/20 04:47 Troponin: < normal limit - Critical Actions Critical Actions: 0-3 pts:0.9-1.7%risk of adverse cardiac event.Candidate for discharge Results - Labs CBC & Chem 7: 03/23/20 09:10 03/23/20 09:10 Labs: Laboratory Last Values WBC 4.5 K/mm3 (4.5-11.0) 03/23/20 09:10 RBC 3.20 M/mm3 (3.65-5.03) L 03/23/20 09:10 Hgb 8.2 gm/dl (11.8-15.2) L 03/23/20 09:10 Hct 26.0 % (35.5-45.6) L 03/23/20 09:10 MCV 81 fl (84-94) L 03/23/20 09:10 MCH 26 pg (28-32) L 03/23/20 09:10 MCHC 32 % (32-34) 03/23/20 09:10 RDW 22.3 % (13.2-15.2) H 03/23/20 09:10 Plt Count 155 K/mm3 (140-440) 03/23/20 09:10 Lymph % (Auto) 29.0 % (13.4-35.0) 03/23/20 09:10 [place] % (Auto) 9.6 % (0.0-7.3) H 03/23/20 09:10 Eos % (Auto) 1.7 % (0.0-4.3) 03/23/20 09:10 Baso % (Auto) 1.0 % (0.0-1.8) 03/23/20 09:10 Lymph # 1.3 K/mm3 (1.2-5.4) 03/23/20 09:10 [place] # 0.4 K/mm3 (0.0-0.8) 03/23/20 09:10 Eos # 0.1 K/mm3 (0.0-0.4) 03/23/20 09:10 Baso # 0.0 K/mm3 (0.0-0.1) 03/23/20 09:10 Seg Neutrophils % 58.7 % (40.0-70.0) 03/23/20 09:10 Seg Neutrophils # 2.6 K/mm3 (1.8-7.7) 03/23/20 09:10 PT 17.0 Sec. (12.2-14.9) H 03/23/20 09:10 INR 1.37 (0.87-1.13) H 03/23/20 09:10 APTT 31.5 Sec. (24.2-36.6) 03/23/20 09:10 Sodium 136 mmol/L (137-145) L 03/23/20 09:10 Potassium 4.3 mmol/L (3.6-5.0) 03/23/20 09:10 Chloride 99.2 mmol/L (98-107) 03/23/20 09:10 Carbon Dioxide 23 mmol/L (22-30) 03/23/20 09:10 Anion Gap 18 mmol/L 03/23/20 09:10 BUN 7 mg/dL (9-20) L 03/23/20 09:10 Creatinine 0.7 mg/dL (0.8-1.3) L 03/23/20 09:10 Estimated GFR > 60 ml/min 03/23/20 09:10 BUN/Creatinine Ratio 10 % 03/23/20 09:10 Glucose 230 mg/dL (75-100) H 03/23/20 09:10 Calcium 8.8 mg/dL (8.4-10.2) 03/23/20 09:10 Total Bilirubin 0.90 mg/dL (0.1-1.2) 03/23/20 09:10 Direct Bilirubin 0.5 mg/dL (0-0.2) H 03/21/20 21:31 Indirect Bilirubin 0.5 mg/dL 03/21/20 21:31 AST 67 units/L (5-40) H 03/23/20 09:10 ALT 46 units/L (7-56) 03/23/20 09:10 Alkaline Phosphatase 142 units/L (35-129) H 03/23/20 09:10 Ammonia 37.0 umol/L (25-60) 03/23/20 09:10 Troponin T < 0.010 ng/mL (0.00-0.029) 03/22/20 04:47 Total Protein 7.1 g/dL (6.3-8.2) 03/23/20 09:10 Albumin 3.2 g/dL (3.9-5) L 03/23/20 09:10 Albumin/Globulin Ratio 0.8 % 03/23/20 09:10 Lipase 23 units/L (13-60) 03/21/20 21:31 Lerma/IV: Voiding Method Urinal IV Catheter Type [Left INT / Saline Lock Antecubital] Active Medications - Current Medications Current Medications: Generic Name Dose Route Start Last Admin Trade Name Freq PRN Reason Stop Dose Admin Acetaminophen 650 mg 03/22/20 03:34 Tylenol AK Q4H PRN Headache Sodium Chloride 1,000 mls @ 125 mls/hr 03/22/20 03:45 03/22/20 09:31 Nacl 0.9% 1000 Ml IV 125 mls/hr DIRECT SCOTT Administration Sodium Chloride 1,000 mls @ 50 mls/hr 03/22/20 11:15 03/23/20 09:37 Nacl 0.9% 1000 Ml IV 50 mls/hr DIRECT SCOTT Administration Lorazepam 2 mg 03/21/20 23:50 Ativan IV Q1HR PRN CIWA-Ar 8-15 Lorazepam 4 mg 03/21/20 23:50 Ativan IV Q1HR PRN CIWA-Ar 16-25 Lorazepam 4 mg 03/21/20 23:50 Ativan IV Q15MIN PRN CIWA-Ar >25 Multivitamins 1 each 03/22/20 13:00 03/23/20 09:19 Theragran Tab PO 1 each QDAY SCOTT Administration Nitroglycerin 0.5 inch 03/22/20 06:00 03/23/20 09:18 Nitro-Bid 2% TP 0.5 inch QIDNTG SCOTT Administration Protocol Ondansetron HCl 4 mg 03/22/20 03:34 Zofran IV Q8H PRN Nausea And Vomiting Pantoprazole Sodium 40 mg 03/22/20 10:00 03/23/20 09:19 Protonix IV 40 mg BID SCOTT Administration
--- NOTE | 2020-03-23 14:56 | Gastroenterology Progress Note ---
Assessment and Plan Unclear if cirrhotic versus acute alcoholic hepatitis based on current liver enzymes, regardless patient needs to undergo alcohol cessation therapy, I did educate him about the importance of alcohol cessation Continue supportive care, suspect LFTs to gradually decrease over the next 1 to 2 weeks continue to monitor synthetic function by checking PT/INR daily Given lack of overt bleeding and suspicion for alcoholic hepatitis L advance p atient's diet to improve his nutrition - Patient Problems (1) Abnormal LFTs (liver function tests) Current Visit: Yes Status: Acute (2) Epigastric abdominal pain Current Visit: Yes Status: Acute (3) GI bleed Current Visit: Yes Status: Acute Qualifiers: GI bleed type/associated pathology: melena Qualified Code(s): K92.1 - M cory (4) UGIB (upper gastrointestinal bleed) Current Visit: No Status: Acute Subjective Date of service: 03/23/20 Principal diagnosis: variceal bleed Objective - Constitutional Vitals: Temp Pulse Resp BP Pulse Ox 98.7 F 96 H 20 144/93 98 03/23/20 11:38 03/23/20 11:38 03/23/20 11:38 03/23/20 11:38 03/23/20 11:38 General appearance: no acute distress - EENT Eyes: EOM intact - Neck Neck: supple - Respiratory Respiratory effort: normal - Cardiovascular Rhythm: regular - Gastrointestinal General gastrointestinal: Present: soft - Integumentary Integumentary: Present: clear, warm - Musculoskeletal Musculoskeletal: normal - Neurologic Neurological: alert and oriented x3 - Psychiatric Psychiatric: appropriate mood/affect - Labs CBC & Chem 7: 03/23/20 09:10 03/23/20 09:10 Labs: Laboratory Results - last 24 hr 03/23/20 03/23/20 03/23/20 09:10 09:10 09:10 WBC 4.5 RBC 3.20 L Hgb 8.2 L Hct 26.0 L MCV 81 L MCH 26 L MCHC 32 RDW 22.3 H Plt Count 155 Lymph % (Auto) 29.0 [place] % (Auto) 9.6 H Eos % (Auto) 1.7 Baso % (Auto) 1.0 Lymph # 1.3 [place] # 0.4 Eos # 0.1 Baso # 0.0 Seg Neutrophils % 58.7 Seg Neutrophils # 2.6 PT INR APTT Sodium 136 L Potassium 4.3 Chloride 99.2 Carbon Dioxide 23 Anion Gap 18 BUN 7 L Creatinine 0.7 L Estimated GFR > 60 BUN/Creatinine Ratio 10 Glucose 230 H Calcium 8.8 Total Bilirubin 0.90 AST 67 H ALT 46 Alkaline Phosphatase 142 H Ammonia 37.0 Total Protein 7.1 Albumin 3.2 L Albumin/Globulin Ratio 0.8 03/23/20 09:10 WBC RBC Hgb Hct MCV MCH MCHC RDW Plt Count Lymph % (Auto) [place] % (Auto) Eos % (Auto) Baso % (Auto) Lymph # [place] # Eos # Baso # Seg Neutrophils % Seg Neutrophils # PT 17.0 H INR 1.37 H APTT 31.5 Sodium Potassium Chloride Carbon Dioxide Anion Gap BUN Creatinine Estimated GFR BUN/Creatinine Ratio Glucose Calcium Total Bilirubin AST ALT Alkaline Phosphatase Ammonia Total Protein Albumin Albumin/Globulin Ratio
--- NOTE | 2020-03-23 15:39 | Progress Note ---
Assessment and Plan - Patient Problems (1) Cirrhosis Current Visit: Yes Status: Acute (2) Cirrhosis Current Visit: Yes Status: Acute (3) Anemia Current Visit: Yes Status: Acute Qualifiers: Anemia type: unspecified type Qualified Code(s): D64.9 - Anemia, unspecified (4) Chest pain Current Visit: Yes Status: Acute Qualifiers: Chest pain type: unspecified Qualified Code(s): R07.9 - Chest pain, unspecified (5) EtOH dependence Current Visit: Yes Status: Acute Qualifiers: Substance use status: uncomplicated Qualified Code(s): F10.20 - Alcohol dependence, uncomplicated Subjective Date of service: 03/23/20 Principal diagnosis: variceal bleed Interval history: NO C/O TODAY Objective Vital Signs Temp Pulse Resp BP Pulse Ox 03/23/20 14:57 96 H 144/93 03/23/20 11:38 98.7 F 96 H 20 144/93 98 03/23/20 11:07 94 H 03/23/20 10:58 97 03/23/20 09:18 82 125/81 03/23/20 08:41 98.5 F 82 20 125/81 99 03/23/20 04:49 98.0 F 87 20 137/85 99 03/23/20 03:00 82 03/23/20 00:23 98.0 F 18 159/87 03/23/20 00:16 98.2 F 84 20 134/88 98 03/22/20 19:35 88 143/94 03/22/20 19:25 98.4 F 88 20 143/94 99 03/22/20 15:52 98.4 F 96 H 20 136/99 99 - Physical Examination General: No Apparent Distress HEENT: Positive: PERRL Neck: Positive: neck supple Cardiac: Positive: Reg Rate and Rhythm Lungs: Positive: clear to auscultation Abdomen: Positive: Unremarkable Extremities: Present: normal - Labs and Meds Cardiac Enzymes 03/23/20 Range/Units 09:10 AST 67 H (5-40) units/L Coagulation 03/23/20 Range/Units 09:10 PT 17.0 H (12.2-14.9) Sec. INR 1.37 H (0.87-1.13) APTT 31.5 (24.2-36.6) Sec. CBC 03/23/20 Range/Units 09:10 WBC 4.5 (4.5-11.0) K/mm3 RBC 3.20 L (3.65-5.03) M/mm3 Hgb 8.2 L (11.8-15.2) gm/dl Hct 26.0 L (35.5-45.6) % Plt Count 155 (140-440) K/mm3 Lymph # 1.3 (1.2-5.4) K/mm3 [place] # 0.4 (0.0-0.8) K/mm3 Eos # 0.1 (0.0-0.4) K/mm3 Baso # 0.0 (0.0-0.1) K/mm3 Comprehensive Metabolic Panel 03/23/20 Range/Units 09:10 Sodium 136 L (137-145) mmol/L Potassium 4.3 (3.6-5.0) mmol/L Chloride 99.2 (98-107) mmol/L Carbon Dioxide 23 (22-30) mmol/L BUN 7 L (9-20) mg/dL Creatinine 0.7 L (0.8-1.3) mg/dL Glucose 230 H (75-100) mg/dL Calcium 8.8 (8.4-10.2) mg/dL AST 67 H (5-40) units/L ALT 46 (7-56) units/L Alkaline Phosphatase 142 H (35-129) units/L Total Protein 7.1 (6.3-8.2) g/dL Albumin 3.2 L (3.9-5) g/dL
[2020-03-23] MEDS ORDERED: BENZOCAINE/MENTHOL LOZENGE MM PRN (18:01)
[2020-03-24] MEDS: SODIUM CHLORIDE 0.9% 1000 ML 1,000 ML IV SCH (04:54)
[2020-03-24] MEDS: NITROGLYCERIN 2% OINT 1 GM TP SCH ×2 (05:00→09:49)
--- NOTE | 2020-03-24 09:45 | Gastroenterology Progress Note ---
Assessment and Plan Unclear if cirrhotic versus acute alcoholic hepatitis based on current liver enzymes, regardless patient needs to undergo alcohol cessation therapy, I did educate him about the importance of alcohol cessation yesterday and reinforced that education today Continue supportive care, suspect LFTs to gradually decrease over the next 1 to 2 weeks continue to monitor synthetic function by checking PT/INR daily as well as daily cmp. Patient reports his blood was not yet drawn this morning please ensure labs are drawn daily From GI perspective patient may be on a full diet - Patient Problems (1) Abnormal LFTs (liver function tests) Current Visit: Yes Status: Acute (2) Epigastric abdominal pain Current Visit: Yes Status: Acute (3) GI bleed Current Visit: Yes Status: Acute Qualifiers: GI bleed type/associated pathology: melena Qualified Code(s): K92.1 - Arsalan na (4) UGIB (upper gastrointestinal bleed) Current Visit: No Status: Acute Subjective Date of service: 03/24/20 Principal diagnosis: variceal bleed Interval history: Patient reports no overt GI bleeding Patient denies abdominal pain Reports did not get blood drawn this morning Objective - Constitutional Vitals: Temp Pulse Resp BP Pulse Ox 99.1 F 82 20 137/87 99 03/24/20 04:33 03/24/20 04:33 03/24/20 04:33 03/24/20 04:33 03/24/20 08:52 General appearance: no acute distress - EENT Eyes: EOM intact ENT: hearing intact - Neck Neck: supple - Respiratory Respiratory effort: normal - Cardiovascular Rhythm: regular - Gastrointestinal General gastrointestinal: Present: soft, non-tender - Labs CBC & Chem 7: 03/23/20 09:10 03/23/20 09:10 Labs: Laboratory Results - last 24 hr 03/23/20 03/23/20 09:10 09:10 Sodium 136 L Potassium 4.3 Chloride 99.2 Carbon Dioxide 23 Anion Gap 18 BUN 7 L Creatinine 0.7 L Estimated GFR > 60 BUN/Creatinine Ratio 10 Glucose 230 H Calcium 8.8 Total Bilirubin 0.90 AST 67 H ALT 46 Alkaline Phosphatase 142 H Ammonia 37.0 Total Protein 7.1 Albumin 3.2 L Albumin/Globulin Ratio 0.8
[2020-03-24] MEDS: MULTIVITAMINS ,THERAPEUTIC TAB PO SCH (09:54)
[2020-03-24] MEDS ORDERED: PANTOPRAZOLE 40 MG TAB PO SCH (10:00)
--- NOTE | 2020-03-24 10:11 | Discharge Summary ---
Providers - Providers Date of Admission: 03/23/20 11:19 Date of discharge: 03/24/20 Attending physician: MISAEL SANDOVAL 03/21/20 23:39 Consult to Physician [CONS] Routine Comment: Consulting Provider: DILMA PATTERSON Physician Instructions: Reason For Exam: melena. n/v. acoholic gastritis 03/22/20 06:00 Consult to Physician [CONS] Routine Comment: Consulting Provider: ANGEL MATTSON Physician Instructions: Reason For Exam: chest pain Primary care physician: ROOFER HELPER Hospitalization Reason for admission: Hematemesis/atypical chest pain Condition: Stable Pertinent studies: Chest x-ray Procedures: EGD; status post variceal banding Hospital course: Patient is comfortable today denies chest pain or shortness of breath, no new episodes of GI bleeding Hemodynamically stable, H&H stable Physical examination prior to discharge unremarkable DC home, follow-up PMD, GI, cardiology per schedule Stable at discharge Final diagnosis --Upper GI bleeding; In the setting of cirrhosis liver with history of recurrent variceal bleeding Hematemesis probably secondary to variceal bleeding GI evaluated the patient, s/p EGD: With esophageal variceal banding for bleeding control Findings 2 columns of Grade III EV from GE jxn to mid esophagus s/p Band x 2 Normal duodenum Moderate portal gastropathy No gastric varices Scarring present from prior banding No blood present in upper GI tract GI Recs: 1. Protonix and MVI therapy. 2. Beta rohini when clinically improved. 3. Clears today; advance tomorrow if no N/V. 4. D/C narcotics, but continue CIWA protocol.) --Atypical chest pain; resolved Probably GI symptoms related Evaluated by cardiology, continue current management Patient denies any chest pain or shortness of breath at this point Patient may have outpatient stress test upon discharge if needed --History of alcoholic cirrhosis liver; Resume home medications, supportive care --History of chronic alcohol use; no alcohol withdrawal symptoms Counseling advised to quit alcohol intake Advised to seek alcohol rehabilitation --DVT prophylaxis; SCDs No pharmacologic anticoagulation in view of variceal bleeding Disposition: DC-01 TO HOME OR SELFCARE Time spent for discharge: 32 min Core Measure Documentation - Palliative Care Palliative Care/ Comfort Measures: Not Applicable - Core Measures Any of the following diagnoses?: none Exam - Constitutional Vitals: Temp Pulse Resp BP Pulse Ox 99.1 F 81 20 155/96 99 09/14/20 04:33 03/24/20 09:49 03/24/20 04:33 03/24/20 09:49 03/24/20 08:52 General appearance: Present: no acute distress, well-nourished - EENT Eyes: Present: PERRL, EOM intact - Neck Neck: Present: supple, normal ROM - Respiratory Respiratory effort: normal Respiratory: bilateral: diminished, negative: rales, rhonchi, wheezing - Cardiovascular Rhythm: regular Heart Sounds: Present: S1 & S2 - Extremities Extremities: no ischemia, No edema - Abdominal General gastrointestinal: Present: soft, non-tender, non-distended, normal bowel sounds - Integumentary Integumentary: Present: clear, warm - Musculoskeletal Musculoskeletal: strength equal bilaterally - Psychiatric Psychiatric: appropriate mood/affect, cooperative - Neurologic Neurologic: CNII-XII intact, moves all extremities Plan Activity: advance as tolerated Diet: regular, advance as tolerated Additional Instructions: If you have worsening symptoms contact MD or go to emergency room. Advised to see GI Dr. Patterson in 1 to 2 weeks. Advised to see cardiology Dr. Skyler De La Cruz in 1 week for possible outpatient stress test if needed Follow up with: PRIMARY CAREMD [Primary Care Provider] - 7 Days MARIBEL MCMAHAN MD [Staff Physician] - 7 Days DILMA PATTERSON MD [Staff Physician] - 7 Days Prescriptions: hydrALAZINE [Apresoline TAB] 10 mg PO Q8HR #90 tablet Benzocaine/Mentho [Cepacol X Strength] 1 each MM Q2HR PRN #2 packet PRN Reason: Sore Throat Folic Acid [Folvite] 1 mg PO DAILY #30 tablet Multivitamin Tab W-MINERAL [Multiple Vitamin/Mineral (Theragran M)] 1 each PO QDAY #30 tablet Pantoprazole [Protonix TAB] 40 mg PO BID #60 tablet Thiamine [Vitamin B-1] 100 mg PO QDAY #30 tablet
--- NOTE | 2020-03-24 11:10 | Progress Note ---
Assessment and Plan Atypical chest pain Upper GI bleed s/p EGD: esophageal variceal banding for bleeding control ETOH abuse Hypertension Conservative cardiac management. Subjective Date of service: 03/24/20 Principal diagnosis: variceal bleed Interval history: Patient has no cardiac complaints. For planned discharge home today. Objective Vital Signs Temp Pulse Resp BP Pulse Ox 03/24/20 09:49 81 155/96 03/24/20 08:52 99 03/24/20 04:33 99.1 F 82 20 137/87 99 03/23/20 23:56 98.5 F 79 16 134/84 99 03/23/20 20:00 90 03/23/20 19:46 98.1 F 90 18 133/85 99 03/23/20 17:52 89 03/23/20 17:50 60 03/23/20 17:49 89 03/23/20 15:59 98.6 F 94 H 20 122/84 98 03/23/20 14:57 96 H 144/93 03/23/20 11:38 98.7 F 96 H 20 144/93 98 - Physical Examination General: No Apparent Distress HEENT: Positive: PERRL Neck: Positive: neck supple Cardiac: Positive: Reg Rate and Rhythm Neuro: Positive: Grossly Intact Extremities: Present: normal
[2020-03-24] MEDS ORDERED: hydrALAZINE 10 MG TAB PO SCH (14:00)
[2020-03-24 17:00] VITALS: BP 145/92
== END 2020-03-24 17:17 | disposition home or self-care (01) | DRG 432 ==
LOC: ED 21:07 → 4A 23:51 → OBSVTOIN 03-23 11:19
PROVIDERS: ADMIT Internal Medicine; ATTEND Internal Medicine
PROC: 06L38CZ Occlusion of Esophageal Vein with Extraluminal Device, Via Natural or Artificial Opening Endoscopic (ICD-10-PCS; principal; 2020-03-22)
DX: K70.30 Alcoholic cirrhosis of liver without ascites (principal); I85.11 Secondary esophageal varices with bleeding; D64.9 Anemia, unspecified; K29.70 Gastritis, unspecified, without bleeding; R07.9 Chest pain, unspecified; E87.5 Hyperkalemia; I10 Essential (primary) hypertension; E66.3 Overweight; F10.20 Alcohol dependence, uncomplicated; K29.20 Alcoholic gastritis without bleeding; K70.9 Alcoholic liver disease, unspecified; Z79.899 Other long term (current) drug therapy; Z72.89 Other problems related to lifestyle; Z91.19 Patient's noncompliance with other medical treatment and regimen; Z68.32 Body mass index [BMI] 32.0-32.9, adult
CPT/HCPCS: 36415; 71045; 80048; 80053; 80076; 82140; 83690; 84484; 85025; 85027; 85610; 85730; 87641; 93005; 96365; 96375; G0378; C9113; J2060; J2405; J2704; J3010; J3411; J7030

== ENCOUNTER 2020-12-03 14:53 | Emergency (ER) | payer BC ==
--- NOTE | 2020-12-03 17:27 | Emergency Department Report ---
- General Chief Complaint: Sore Throat Stated Complaint: N/V Source: patient Mode of arrival: Ambulatory Limitations: No Limitations - History of Present Illness Initial Comments: Patient is a 50-year-old -[place] male with a history of hypertension, chronic heavy tobacco and alcohol abuse who presents to the ED with complaint of acute onset persistent nasal and sinus congestion, frontal sinus pressure and headache, sore throat, persistent dry cough with intermittent nausea for the last 3 days, worse in the last 12 hours. Patient states that he last drank alcohol heavily about 2 days ago. Patient states that he has not been taking his blood pressure medication for over a year after he ran out of the medicine and states that it was amlodipine 10 mg daily. Patient denies dizziness, synco pe, fever, chills, vomiting, diarrhea, abdominal pain, chest pain or shortness of breath, headache, back pain, change in vision, palpitations or hemoptysis. MD Complaint: cough, sore throat, rhinorrhea, nasal congestion, sinus pain -: Sudden, days(s) (3) Severity: moderate Severity scale (0 -10): 6 Quality: sharp, aching Consistency: constant Improves With: nothing Worsens With: nothing Associated Symptoms: denies other symptoms, rhinorrhea, nasal congestion, sore throat, cough. denies: fever, chills, myalgias, diaphoresis, headache, stiff neck, chest pain, shortness of breath, abdominal pain, nausea, vomiting, diarrhea, dysuria, rash, confusion, right sweats, weight loss, epistaxis, ear pain, other Treatments Prior to Arrival: none - Related Data Previous Rx's Medication Instructions Recorded Last Taken Type Pantoprazole [Protonix TAB] 40 mg PO BID #60 tablet 03/24/20 Unknown Rx hydrALAZINE [Apresoline TAB] 10 mg PO Q8HR #90 tablet 03/24/20 Unknown Rx Azithromycin [Zithromax Z-MARISOL] 250 mg PO DAILY #6 tablet 12/03/20 Unknown Rx Benzocaine/Mentho [Cepacol X 1 each PO Q2HR PRN #2 packet 12/03/20 Unknown Rx Strength] Benzonatate [Tessalon Perles] 100 mg PO Q8HR #30 capsule 12/03/20 Unknown Rx Folic Acid [Folvite] 1 mg PO DAILY #30 tablet 12/03/20 Unknown Rx Multivitamin Tab W-MINERAL 1 each PO QDAY #30 tablet 12/03/20 Unknown Rx [Multiple Vitamin/Mineral (Theragran M)] Ondansetron [Zofran Odt] 4 mg PO Q6HR PRN #20 tab.rapdis 12/03/20 Unknown Rx Thiamine [Vitamin B-1] 100 mg PO QDAY #30 tablet 12/03/20 Unknown Rx amLODIPine 10 mg PO DAILY #90 tab 12/03/20 Unknown Rx Allergies Allergy/AdvReac Type Severity Reaction Status Date / Time No Known Allergies Allergy Verified 12/03/20 16:43 ED Review of Systems ROS: Stated complaint: N/V Other details as noted in HPI Constitutional: denies: chills, fever Eyes: denies: eye pain, eye discharge, vision change ENT: throat pain, congestion. denies: ear pain Respiratory: cough. denies: shortness of breath, wheezing Cardiovascular: denies: chest pain, palpitations Endocrine: no symptoms reported Gastrointestinal: nausea. denies: abdominal pain, vomiting, diarrhea Genitourinary: denies: urgency, dysuria Musculoskeletal: denies: back pain, joint swelling, arthralgia Skin: denies: rash, lesions Neurological: denies: headache, weakness, paresthesias Psychiatric: denies: anxiety, depression Hematological/Lymphatic: denies: easy bleeding, easy bruising ED Past Medical Hx - Past Medical History Hx Hypertension: Yes Hx Heart Attack/AMI: No Hx Congestive Heart Failure: No Hx Diabetes: No Hx Liver Disease: Yes (Heavy ETOh abuse) Hx Sickle Cell Disease: No Hx Seizures: No Hx Asthma: No Hx COPD: No Hx HIV: No - Social History Smoking Status: Former Smoker - Medications Home Medications: Home Medications Medication Instructions Recorded Confirmed Last Taken Type Pantoprazole [Protonix TAB] 40 mg PO BID #60 tablet 03/24/20 Unknown Rx hydrALAZINE [Apresoline TAB] 10 mg PO Q8HR #90 tablet 03/24/20 Unknown Rx Azithromycin [Zithromax Z-MARISOL] 250 mg PO DAILY #6 tablet 12/03/20 Unknown Rx Benzocaine/Mentho [Cepacol X 1 each PO Q2HR PRN #2 packet 12/03/20 Unknown Rx Strength] Benzonatate [Tessalon Perles] 100 mg PO Q8HR #30 capsule 12/03/20 Unknown Rx Folic Acid [Folvite] 1 mg PO DAILY #30 tablet 12/03/20 Unknown Rx Multivitamin Tab W-MINERAL 1 each PO QDAY #30 tablet 12/03/20 Unknown Rx [Multiple Vitamin/Mineral (Theragran M)] Ondansetron [Zofran Odt] 4 mg PO Q6HR PRN #20 tab.rapdis 12/03/20 Unknown Rx Thiamine [Vitamin B-1] 100 mg PO QDAY #30 tablet 12/03/20 Unknown Rx amLODIPine 10 mg PO DAILY #90 tab 12/03/20 Unknown Rx ED Physical Exam - General Limitations: No Limitations General appearance: alert, in no apparent distress - Head Head exam: Present: atraumatic, normocephalic, normal inspection - Eye Eye exam: Present: normal appearance, PERRL, EOMI Pupils: Present: normal accommodation - ENT ENT exam: Present: mucous membranes moist, normal external ear exam, other (Grossly congested nasal passages; mild erythematous oropharynx and tonsils with no exudates or tonsillar swelling) - Neck Neck exam: Present: normal inspection, full ROM - Respiratory Respiratory exam: Present: normal lung sounds bilaterally. Absent: respiratory distress, wheezes, rhonchi, chest wall tenderness, accessory muscle use, decreased breath sounds - Cardiovascular Cardiovascular Exam: Present: regular rate, normal rhythm, normal heart sounds. Absent: systolic murmur, diastolic murmur, rubs, gallop - GI/Abdominal GI/Abdominal exam: Present: soft, normal bowel sounds. Absent: tenderness, guarding, rebound, hyperactive bowel sounds, hypoactive bowel sounds, organomeg kian - Extremities Exam Extremities exam: Present: normal inspection, full ROM, normal capillary refill - Back Exam Back exam: Present: normal inspection, full ROM. Absent: tenderness, CVA tenderness (R), CVA tenderness (L), muscle spasm, paraspinal tenderness, vertebral tenderness - Neurological Exam Neurological exam: Present: alert, oriented X3, CN II-XII intact, normal gait, reflexes normal - Psychiatric Psychiatric exam: Present: normal affect, normal mood - Skin Skin exam: Present: warm, dry, intact, normal color. Absent: rash ED Course Vital Signs 12/03/20 16:40 Temperature 98.2 F Pulse Rate 99 H Respiratory 18 Rate Blood Pressure 168/86 [Right] O2 Sat by Pulse 98 Oximetry ED Medical Decision Making - Medical Decision Making This is a 50-year-old -[place] male with a history of hypertension, chronic heavy tobacco and alcohol abuse who presents to the ED with complaint of acute onset persistent nasal and sinus congestion, frontal sinus pressure and headache, sore throat, persistent dry cough with intermittent nausea for the last 3 days, worse in the last 12 hours. Patient states that he last drank alcohol heavily about 2 days ago. Patient states that he has not been taking his blood pressure medication for over a year after he ran out of the medicine and states that it was amlodipine 10 mg daily. In the ED, patient is alert and oriented x3 and is not in any distress. Based on the history and physical exam findings, the patient was discharged home on medications and advised to follow- up with his primary care physician in 5 to 7 days for reevaluation. Patient was advised return to the ED immediately if symptoms get worse. - Differential Diagnosis URI; sinusitis; bronchitis; pharyngitis Critical care attestation.: If time is entered above; I have spent that time in minutes in the direct care of this critically ill patient, excluding procedure time. ED Disposition Clinical Impression: Acute upper respiratory infection, Chronic alcohol abuse Acute frontal sinusitis, unspecified Qualifiers: Recurrence: non-recurrent Qualified Code(s): J01.10 - Acute frontal sinusitis, unspecified Acute bronchitis Qualifiers: Bronchitis organism: other organism Qualified Code(s): J20.8 - Acute bronchitis due to other specified organisms Disposition: DC-01 TO HOME OR SELFCARE Is pt being admited?: No Does the pt Need Aspirin: No Condition: Stable Instructions: Acute Bronchitis (ED), Sinusitis, Adult, [id number], Upper Respiratory Infection, Adult, [id number], Acute Bronchitis, Adult, [id number], Alcohol Abuse and Dependence Information, Adult Additional Instructions: Take medication with food, drink plenty of fluids and follow-up with your primary care physician in 7 to 10 days for reevaluation. Return to the ED immediately if symptoms get worse. Prescriptions: amLODIPine 10 mg PO DAILY #90 tab Benzocaine/Mentho [Cepacol X Strength] 1 each PO Q2HR PRN #2 packet PRN Reason: Sore Throat Folic Acid [Folvite] 1 mg PO DAILY #30 tablet Multivitamin Tab W-MINERAL [Multiple Vitamin/Mineral (Theragran M)] 1 each PO QDAY #30 tablet Benzonatate [Tessalon Perles] 100 mg PO Q8HR #30 capsule Thiamine [Vitamin B-1] 100 mg PO QDAY #30 tablet Azithromycin [Zithromax Z-MARISOL] 250 mg PO DAILY #6 tablet Ondansetron [Zofran Odt] 4 mg PO Q6HR PRN #20 tab.rapdis PRN Reason: Nausea Referrals: MOI SANCHEZ [Other] - 3-5 Days Time of Disposition: 17:27 Print Language: UPPER SORBIAN
== END 2020-12-03 18:13 | disposition home or self-care (01) ==
LOC: ED 14:53
CPT/HCPCS: 99281

== ENCOUNTER 2021-03-15 03:08 | Emergency (ER) | payer SELFPAY ==
[2021-03-15] MEDS ORDERED: SODIUM CHLORIDE 0.9% 1000 ML 1,000 ML IV ONE ×2 (03:38→04:17)
--- NOTE | 2021-03-15 04:15 | XRay Report ---
LEFT SHOULDER 3 VIEWS INDICATION: Injury. COMPARISON: No relevant prior imaging study available. FINDINGS: There is anterior-inferior dislocation of the left humeral head with respect to the glenoid. There is an associated comminuted proximal left humerus fracture involving the greater tuberosity. No definit e glenoid fracture is seen. IMPRESSION: 1. Anterior left shoulder dislocation with associated comminuted, displaced proximal left humerus fra cture. Signer Name: Frantz Snider MD Signed: 03/15/2021 4:11 AM Workstation Name: [id number]
[2021-03-15] MEDS ORDERED: ETOMIDATE 20 MG/10 ML INJ IV ONE (04:17)
[2021-03-15] MEDS ORDERED: propofoL 200 MG/20 ML VIAL IV ONE (04:17)
--- NOTE | 2021-03-15 04:21 | Emergency Department Report ---
ED Upper Extremity Inj HPI - General Chief Complaint: Shoulder Injury Stated Complaint: DISLOCATED SHOULDER Time Seen by Provider: 03/15/21 04:17 Source: patient Mode of arrival: Ambulatory Limitations: No Limitations - History of Present Illness Initial Comments: Patient is a 50-year-old male who presents emergency room with complaints of left shoulder pain. Patient states he was trying to get up and he fell to the ground. Patient states he felt a popping sensation in his left shoulder. Patient states the pain is severe. Patient's pain is 10 out of 10. He states the pain is better with rest and worse with movement. Patient denies any other injury. Patient denies loss of conscious. Patient denies neck pain. Patient denies chest pain or shortness of breath. Patient is not vaccinated against COVID-19. Patient denies recent travel. Patient denies recent international travel. Patient denies exposure to the novel coronavirus. Patient denies sick contacts. Patient denies fever and chills. Patient denies cough. Patient denies di arrhea. Patient denies coming in contact with anybody with symptoms of the novel coronavirus. Complaint: Injury to:: left, shoulder -: Sudden Other Extremity Injury: Shoulder: Left Place: outdoors Severity scale (0 -10): 10 Improves With: rest Worsens With: medication, movement of extremity Context: fall Associated Symptoms: heard/felt popping sensat. denies: weakness, numbness, neck pain, suspects foreign body, nausea/vomiting Treatments Prior to Arrival: bandage - Related Data Previous Rx's Medication Instructions Recorded Last Taken Type Pantoprazole [Protonix TAB] 40 mg PO BID #60 tablet 03/24/20 Unknown Rx hydrALAZINE [Apresoline TAB] 10 mg PO Q8HR #90 tablet 03/24/20 Unknown Rx Azithromycin [Zithromax Z-MARISOL] 250 mg PO DAILY #6 tablet 12/03/20 Unknown Rx Benzocaine/Mentho [Cepacol X 1 each PO Q2HR PRN #2 packet 12/03/20 Unknown Rx Strength] Benzonatate [Tessalon Perles] 100 mg PO Q8HR #30 capsule 12/03/20 Unknown Rx Folic Acid [Folvite] 1 mg PO DAILY #30 tablet 12/03/20 Unknown Rx Multivitamin Tab W-MINERAL 1 each PO QDAY #30 tablet 12/03/20 Unknown Rx [Multiple Vitamin/Mineral (Theragran M)] Ondansetron [Zofran Odt] 4 mg PO Q6HR PRN #20 tab.rapdis 12/03/20 Unknown Rx Thiamine [Vitamin B-1] 100 mg PO QDAY #30 tablet 12/03/20 Unknown Rx amLODIPine 10 mg PO DAILY #90 tab 12/03/20 Unknown Rx Allergies Allergy/AdvReac Type Severity Reaction Status Date / Time No Known Allergies Allergy Verified 12/03/20 16:43 ED Review of Systems ROS: Stated complaint: DISLOCATED SHOULDER Other details as noted in HPI Constitutional: denies: chills, fever Eyes: denies: eye pain, eye discharge, vision change ENT: denies: ear pain, throat pain Respiratory: denies: cough, shortness of breath, wheezing Cardiovascular: denies: chest pain, palpitations Endocrine: no symptoms reported Gastrointestinal: denies: abdominal pain, nausea, diarrhea Genitourinary: denies: urgency, dysuria Musculoskeletal: denies: back pain, joint swelling, arthralgia Skin: denies: rash, lesions Neurological: denies: headache, weakness, paresthesias Psychiatric: denies: anxiety, depression Hematological/Lymphatic: denies: easy bleeding, easy bruising ED Past Medical Hx - Past Medical History Previous Medical History?: Yes Hx Hypertension: Yes Hx Heart Attack/AMI: No Hx Congestive Heart Failure: No Hx Diabetes: No Hx Liver Disease: Yes (Heavy ETOh abuse) Hx Sickle Cell Disease: No Hx Seizures: No Hx Asthma: No Hx COPD: No Hx HIV: No - Surgical History Past Surgical History?: No - Family History Family history: no significant - Social History Smoking Status: Former Smoker Substance Use Type: Alcohol - Medications Home Medications: Home Medications Medication Instructions Recorded Confirmed Last Taken Type Pantoprazole [Protonix TAB] 40 mg PO BID #60 tablet 03/24/20 Unknown Rx hydrALAZINE [Apresoline TAB] 10 mg PO Q8HR #90 tablet 03/24/20 Unknown Rx Azithromycin [Zithromax Z-MARISOL] 250 mg PO DAILY #6 tablet 12/03/20 Unknown Rx Benzocaine/Mentho [Cepacol X 1 each PO Q2HR PRN #2 packet 12/03/20 Unknown Rx Strength] Benzonatate [Tessalon Perles] 100 mg PO Q8HR #30 capsule 12/03/20 Unknown Rx Folic Acid [Folvite] 1 mg PO DAILY #30 tablet 12/03/20 Unknown Rx Multivitamin Tab W-MINERAL 1 each PO QDAY #30 tablet 12/03/20 Unknown Rx [Multiple Vitamin/Mineral (Theragran M)] Ondansetron [Zofran Odt] 4 mg PO Q6HR PRN #20 tab.rapdis 12/03/20 Unknown Rx Thiamine [Vitamin B-1] 100 mg PO QDAY #30 tablet 12/03/20 Unknown Rx amLODIPine 10 mg PO DAILY #90 tab 12/03/20 Unknown Rx ED Physical Exam - General Limitations: No Limitations General appearance: alert, in no apparent distress - Head Head exam: Present: atraumatic, normocephalic - Eye Eye exam: Present: normal appearance - ENT ENT exam: Present: mucous membranes moist - Neck Neck exam: Present: normal inspection - Respiratory Respiratory exam: Present: normal lung sounds bilaterally. Absent: respiratory distress - Cardiovascular Cardiovascular Exam: Present: regular rate, normal rhythm. Absent: systolic murmur, diastolic murmur, rubs, gallop - GI/Abdominal GI/Abdominal exam: Present: soft, normal bowel sounds - Rectal Rectal exam: Present: deferred - Extremities Exam Extremities exam: Present: normal inspection (Except for left shoulder. Left shoulder is tender to palpation with deformity.) - Back Exam Back exam: Present: normal inspection - Neurological Exam Neurological exam: Present: alert, oriented X3 - Psychiatric Psychiatric exam: Present: normal affect, normal mood - Skin Skin exam: Present: warm, dry, intact, normal color. Absent: rash ED Course Vital Signs 03/15/21 03/15/21 03/15/21 03:16 03:24 05:24 Temperature 98.3 F Pulse Rate 67 84 94 H Respiratory 18 16 16 Rate Blood Pressure 79/41 Blood Pressure 124/72 122/68 [Right] O2 Sat by Pulse 91 100 100 Oximetry 03/15/21 08:08 Temperature 98.1 F Pulse Rate Respiratory 22 Rate Blood Pressure Blood Pressure 112/72 [Right] O2 Sat by Pulse 98 Oximetry - Reevaluation(s) Reevaluation #1: I discussed all results and clinical findings with patient. I discussed plan of care with patient. Patient agrees with plan of care. Patient is stable for transfer. Patient will be transferred to the [facility] in [place]. 03/15/21 05:25 - Consultations Consultation #1: This facility at this time does not have orthopedic or trauma support. 03/15/21 04:49 Consultation #2: I discussed the case with Dr. Garcia, trauma surgery at [facility] in [facility]. Dr. Garcia has accepted the patient to be transferred ER to ER. 03/15/21 05:09 ED Medical Decision Making - Lab Data Result diagrams: 03/15/21 05:25 03/15/21 05:25 - Radiology Data Radiology results: report reviewed, image reviewed LEFT SHOULDER 3 VIEWS INDICATION: Injury. COMPARISON: No relevant prior imaging study available. FINDINGS: There is anterior-inferior dislocation of the left humeral head with respect to the glenoid. There is an associated comminuted proximal left humerus fracture involving the greater tuberosity. No definite glenoid fracture is seen. IMPRESSION: 1. Anterior left shoulder dislocation with associated comminuted, displaced proximal left humerus fracture. - Medical Decision Making Patient is a 50-year-old male who presents emergency room with complaints of left shoulder pain. Patient had an x-ray done which showed a fracture dislocation. Patient's fracture is a comminuted fracture of the humeral head. Patient will most likely require surgical intervention for this injury. I discussed the case with Dr. Garcia, trauma surgery and he is excepted the patient be transferred ER to ER. Patient will transfer via EMS. Patient given Dilaudid and Zofran for pain. Critical care time documented due to the multiple reassessments, prolonged time at the bedside, interpretation of diagnostics and labs. - Differential Diagnosis Strain, sprain, fracture, dislocation, shoulder pain Critical Care Time: Yes Critical care time in (mins) excluding proc time.: 35 Critical care attestation.: If time is entered above; I have spent that time in minutes in the direct care of this critically ill patient, excluding procedure time. Critical Care Time: 35 minutes ED Disposition Clinical Impression: Shoulder pain Qualifiers: Chronicity: acute Laterality: left Qualified Code(s): M25.512 - Pain in left shoulder Shoulder dislocation Qualifiers: Encounter type: initial encounter Laterality: left Qualified Code(s): S43.005A - Unspecified dislocation of left shoulder joint, initial encounter Humeral fracture Qualifiers: Encounter type: initial encounter Humerus Location: surgical neck Fracture type: closed Fracture morphology: unspecified fracture morphology Fracture alignment: displaced Laterality: left Qualified Code(s): S42.212A - Unspecified displaced fracture of surgical neck of left humerus, initial encounter for closed fracture Disposition: 04 [facility] Is pt being admited?: No Does the pt Need Aspirin: No Condition: Critical Time of Disposition: 05:29
[2021-03-15] MEDS ORDERED: HYDROmorphone 1 MG/1 ML INJ IV ONE (05:29)
[2021-03-15] MEDS ORDERED: ONDANSETRON 4 MG/2 ML INJ IV ONE (05:29)
[2021-03-15 05:42] LABS: Hematocrit 31.7 % (35.5-45.6); Hemoglobin 10.2 gm/dl (11.8-15.2); Mean Corpuscular HGB Conc 32 % (32-34); Mean Corpuscular Volume 79 fl (84-94); Platelet Count 170 K/mm3 (140-440); Red Blood Count 4.04 M/mm3 (3.65-5.03)
[2021-03-15 05:45] LABS: Red Cell Distribution Width 24.9 % (13.2-15.2)
[2021-03-15 06:04] LABS: Alanine Aminotransferase 38 units/L (7-56); Albumin 3.4 g/dL (3.9-5); BUN/Creatinine Ratio 7; Blood Urea Nitrogen 6 mg/dL (9-20); Calcium 8.2 mg/dL (8.4-10.2); Hemolysis Index 1
[2021-03-15 08:13] VITALS: BP 112/72
== END 2021-03-15 10:03 ==
LOC: ED 03:08
DX: S43.085A Other dislocation of left shoulder joint, initial encounter (principal); S42.212A Unspecified displaced fracture of surgical neck of left humerus, initial encounter for closed fracture; I10 Essential (primary) hypertension; Z79.899 Other long term (current) drug therapy; W18.39XA Other fall on same level, initial encounter; Y93.89 Activity, other specified; Y92.89 Other specified places as the place of occurrence of the external cause; Y99.8 Other external cause status
CPT/HCPCS: 36415; 73030; 80053; 85027; 96361; 96374; 96375; 99291; J1170; J2405; J2704; J7030